=== PATIENT | female | born 1955 | race African-American/Black ===

== ENCOUNTER → 2022-02-12 11:41 | Outpatient (CLI) | payer BC, SELFPAY ==
--- NOTE | ~2022-02-12 | MM_ITS ---
EXAMINATION: MM screening anastasiya BI w abel HISTORY: Screening mammogram TECHNIQUE: Craniocaudal and mediolateral oblique 3-D tomosynthesis images were obtained and synthetic 2-D images were generated. CAD analysis was submitted and interpreted. COMPARISON: No prior mammogram is available for comparison at this institution. BREAST PARENCHYMAL COMPOSITION: There are scattered areas of fibroglandular density. FINDINGS: There is no evidence of suspicious mass, calcification, or architectural distortion to sugg est malignancy in either breast. There has been no suspicious interval change. IMPRESSION: 1. No mammographic evidence of malignancy. 2. Recommend routine screening mammography in one year. BI-RADS Category 1: Negative Reviewed, dictated and finalized at location A.
== END ==
PROVIDERS: PCP Internal Medicine; Visit Provider Internal Medicine
DX: Z12.31 Encounter for screening mammogram for malignant neoplasm of breast (principal)
CPT/HCPCS: 77063; 77067

== ENCOUNTER → 2023-06-18 15:10 | Outpatient (CLI) | payer BC, SELFPAY ==
--- NOTE | ~2023-06-18 | US_ITS ---
EXAMINATION: US pelvic complete w TV DATE: 06/18/2023 15:57 INDICATION: Postmenopausal bleeding TECHNIQUE: Multiple transabdominal and endovaginal sonographic images of the pelvis were obtained. COMPARISON: None. FINDINGS: The uterus measures 6.9 x 4.6 x 6.2 cm. The endometrial complex measures 6 mm. There are po ssible polyps of the endometrial canal measuring up to 11 mm. A small volume of fluid is noted in the endometrial canal. The right ovary is not visualized however no right adnexal abnormality is seen. T he left ovary measures 1.6 x 0.9 x 2.0 cm. There is normal vascular flow in the left ovary. There is no free fluid in the pelvis. IMPRESSION: 1. Small amount of intraventricular fluid with possible endometrial polyps. Endometrial sampling is r ecommended. Reviewed, dictated and finalized at location F. TH ASSOCIATE IMPRESSION: 1. Small amount of intraventricular fluid with possible endometrial polyps. End ometrial sampling is recommended.
== END ==
PROVIDERS: PCP Obstetrics & Gynecology; Visit Provider Obstetrics & Gynecology
DX: N95.0 Postmenopausal bleeding (principal); R93.5 Abnormal findings on diagnostic imaging of other abdominal regions, including retroperitoneum
CPT/HCPCS: 76830; 76856

== ENCOUNTER 2023-08-20 00:21 | Day surgery (SDC) | payer BC, SELFPAY ==
[2023-08-16 09:44] VITALS: BMI 24.1
--- NOTE | 2023-08-16 09:59 | PC.NURSE ---
Report to the Outpatient Waiting Room, entrance under the green pavilion located off [facility], at time __7:30AM on date __08/20/23 . Planned Procedure Time: ___9:30AM . Time changes happen often and if your time is changed the preop area will call you the afternoon before. - You and your visitor will be asked to self-screen and do not enter if you have any COVID symptoms. - A mask is optional within the hospital at this time. Patients may have clear liquids (water, carbonated beverages, clear teas, apple juice) until 3 hours prior to surgery with a maximum of 20 ounces. - No food from midnight until time of surgery. Take the following medications with a SIP of water the morning of surgery: NONE DO NOT STOP ANY OF YOUR OTHER PRESCRIPTION MEDICATIONS PRIOR TO SURGERY ?EXCEPT THE FOLLOWING Medications to discontinue per physician ____HOLD ALL VITAMINS/SUPPLEMENTS 3 DAYS PRE-OP PE ANESTHESIA Date to take last dose 08/16/23 Please no make-up, nail mongolian, hairspray, perfume, deodorant, or body powder the day of surgery. No jewelry (including any body piercings) or valuables the day of surgery, leave them at home. Please take a shower or bath the night before, or the morning of, surgery with an antibacterial soap. Wear comfortable, loose fitting clothing. Children are encouraged to wear pajamas. - Jewelry must be removed prior to entering the operating room. Rings and piercings that are not removed may be cut off. - The hospital will not accept responsibility for valuables. - Please leave all valuables, including medications, at home the day of surgery. If you are going home after surgery, a licensed spotter driver must drive you home. - NO public transportation without another adult if you receive anesthesia. - We recommend that an adult stay with you for 24 hours following discharge. - We also recommend that you do not drive, make important decision, drink alcoholic beverages, or take any drugs that were not prescribed by your health care provider for at least 24 hours after your discharge time. For Pediatric surgeries, we recommend two adults accompany the child home. Follow any additional instructions given to you from your surgeon. If you or anyone in your household have experienced Covid symptoms in the past week, please notify your surgeon or the nurse liaison at the phone number below for possible testing. Telephone instructions given to ____PATIENT and asked if any additional questions and then verbalized understanding. Patient advised to call surgeon office or pre surgery nurse liaison [phone] if any additional questions.
--- NOTE | 2023-08-19 11:27 | P.PNAN_ITS ---
Anes - Initial Pre Proc Eval Procedure: Operation Date: 08/20/23 11:00 Proposed Procedures p Hysteroscopy Dilation and Curettage, Removal of any Endometrial Lesion If Necessary - Richard Tapia MD Date/Time: 08/19/23 11:27 Surgeon: Richard Tapia MD Pre Op Diagnosis: Post Menopausal Bleed,Thickened Endometrial Stripe Patient Data Age: 68 Gender: F Height: 1.7 m Weight: 70 kg Allergies Allergy/AdvReac Type Severity Reaction Status Date / Time Penicillins Allergy Mild Unknown Verified 08/20/23 09:26 Home Medications Medication Instructions Recorded Confirmed Type cod liver oil 5 ml PO DAILY 08/16/23 08/20/23 History Patient hx anesthesia problems: none Family hx anesthesia problems: none Results Review: All pre-operative results and documents have been reviewed as part of the pre- operative evaluation. [facility] Past Medical History Medical History (Updated 08/20/23 @ 09:56 by Santiago Ewing DO) CKD (chronic kidney disease) GERD (gastroesophageal reflux disease) Graves disease Surgical History Surgical History H/O nephrostomy H/O tubal ligation History of removal of calculus of renal pelvis through percutaneous nephrostomy [place] teeth removed Family History Family History Other Alcoholism Diabetes mellitus Heart disease Hypertension Lung cancer Social History Social History Smoking status: Never smoker Alcohol intake: never Substance use: never Do You Feel Safe in your Home?: Yes Lack of Transportation: No Lack of Food: Never True Current Housing: I Have Housing Concerned About Future Housing: No Difficulty Paying Gas/Electric Bills: No Difficulty Paying for Meds: No Currently Unemployed: No Difficulty w/ Childcare or Family Care: No Living arrangements: alone Spiritual care concerns: No Anes - Eval Final PreProcedure Day of Procedure 08/19/23 11:27 Patient weight: normal Heart: regular rate and rhythm Lungs: clear to auscultation and normal air movement Airway: Mallampati scale class II Neurological: alert and oriented Last oral intake: >/= 8 hours ASA classification: III Emergent: no Anesthetic plan: proceed Anesthesia type and monitoring: general GIVS and standard monitoring Results Review: All pre-operative results and documents have been reviewed as part of the pre- operative evaluation. Informed Consent: The patient's anesthetic plan and its attendant risks and benefits were discussed with the patient/family/POA. Questions were solicited and answers provided to the satisfaction of the patient/family/POA.
[2023-08-20 09:25] VITALS: BP 118/72; PULSE 58; RESP 20; TEMP 36.9; O2SAT 98
--- NOTE | 2023-08-20 09:42 | PM.IMHP ---
H&P: HPI History of Present Illness Date/Time: 08/20/23 09:42 Chief Complaint: Postmenopausal spotting Narrative: Patient presented with episodes of post menopausal spotting subsequent ultrasound showed thickened endometrial cavity she opted for hysteroscopy D&C for endometrial sampling. Review of Systems Review of Systems: All systems reviewed & are unremarkable except as noted in HPI and below Cardiovascular: Cardiovascular: Reports no additional cardiovascular complaints, Denies chest pain and Denies dyspnea Respiratory: Respiratory: Reports no additional respiratory complaints and Denies dyspnea Gastrointestinal: Gastrointestinal: Reports abdominal pain, Denies change in bowel habits, Denies diarrhea, Denies nausea and Denies vomiting Genitourinary: Genitourinary: Reports pelvic pain Musculoskeletal: Musculoskeletal: Reports back pain Integumentary/Breasts: Skin/Breast: Reports system reviewed and no additional complaints, except as docu Neurologic: Reports system reviewed and no additional complaints, except as documented PMFSH Past Medical History Medical History GERD (gastroesophageal reflux disease) Graves disease Kidney disease Surgical History Surgical History H/O nephrostomy H/O tubal ligation History of removal of calculus of renal pelvis through percutaneous nephrostomy [place] teeth removed Family History Family History Other Alcoholism Diabetes mellitus Heart disease Hypertension Lung cancer Social History Social History Smoking status: Never smoker Alcohol intake: never Substance use: never Do You Feel Safe in your Home?: Yes Lack of Transportation: No Lack of Food: Never True Current Housing: I Have Housing Concerned About Future Housing: No Difficulty Paying Gas/Electric Bills: No Difficulty Paying for Meds: No Currently Unemployed: No Difficulty w/ Childcare or Family Care: No Living arrangements: alone Spiritual care concerns: No Meds Home Medications and Allergies Home Medications Medication Instructions Recorded Confirmed Type cod liver oil 5 ml PO DAILY 08/16/23 08/20/23 History Allergies Allergy/AdvReac Type Severity Reaction Status Date / Time Penicillins Allergy Mild Unknown Verified 08/20/23 09:26 Exam Const: Orientation/consciousness: oriented to person and oriented to place HENMT: Head: normal to inspection Eyes: General: appearance normal, both eyes and all related structures Resp: Effort & Inspection: normal respiratory effort Auscultation: clear to auscultation bilaterally Cardio: Rate: regular rate Rhythm: regular rhythm GI: Inspection: normal to inspection GI Palp: No Rebound tenderness present Neuro: General: oriented to person and oriented to place Cognition (Neuro): normal cognition Extrem: General: normal to inspection Psych: Appearance: grossly normal and well kempt Assessment and Plan Assessment and plan (1) Endometrial stripe increased: Code(s): R93.89 - Abnormal findings on diagnostic imaging of other specified body structures Status: Acute Assessment and Plan: Will perform D and C hysteroscopy and removal of any lesion if present.
[2023-08-20] MEDS: ACETAMINOPHEN 500 MG TABLET 1000 MG PO (10:11)
--- NOTE | 2023-08-20 10:12 | WPDHPUPDATE1 ---
History and Physical Update Update Date/Time: 08/20/23 10:12 History and Physical has been reviewed, including an updated exam of the patient. There are NO changes in the patient's condition. Risks, benefits, and alternatives have been discussed and questions answered. Patient agrees to proceed with procedure.
[2023-08-20] MEDS: LACTATED RINGERS 1,000 ML 30 ML IV CONT (10:15)
--- NOTE | 2023-08-20 11:04 | SUR.OPER ---
Manual count for intake and output
--- NOTE | 2023-08-20 11:11 | W.PM.PROC2 ---
Procedure Note - Detailed Date of Procedure 08/20/23 Pre-op Diagnosis Post Menopausal Bleed,Thickened Endometrial Stripe Post-op Diagnosis Other (Submucosal fibroids calcified) Procedure Performed dilation and curettage and hysteroscopy and removal of endometrial lesions Surgeon Richard Tapia MD Anesthesia MAC and Local Indications Postmenopausal bleeding, thickened endometrial stripe Findings uterus sound to 10, multiple submucosal fibroid appearing lesion, calcified, not able to remove all due to dense calcium Description of Procedure After informed consent was obtained patient was taken to the operating room and adequate IV sedation was administered. Attention was turned to the vagina. Speculum was inserted. Single-tooth tenaculum placed on the anterior lip of the cervix. 1% lidocaine was injected at the cervical vaginal interface at 2:58 a.m. and 10 position. The uterus was sounded to 10 cm. The cervix was dilated to a 4Pratt dilator. The hysteroscope was inserted into the cavity. The findings were 3 submucosal lesions consistent with fibroids. The larger AVita instrument was used and the fibroids were partially removed with the Cathryn could not remove all of them due to the dense calcium of the fibroids. The fluid deficit was 600. The hysteroscope was removed. A curettage was performed. The single-tooth tenaculum was removed hemostasis was noted at the tenaculum site. Sponge count correct. The patient taken to recovery in stable condition. Estimated Blood Loss 5 Drains No Packing No Pathology Yes (A cathryn shavings and curettage) Complications No immediate complications Condition Stable Disposition Same day [facility] Billing Surgery - Charge Forward: Surgery Billing
[2023-08-20 11:12] VITALS: BP 98/66; PULSE 59; RESP 12; O2SAT 97
[2023-08-20 11:40] VITALS: BP 130/81; PULSE 47; RESP 15
[2023-08-20 12:15] VITALS: BP 129/66; PULSE 52; RESP 16
== END 2023-08-20 12:35 | disposition home or self-care (01) ==
PROVIDERS: PCP Internal Medicine; Visit Provider Obstetrics & Gynecology
PROC: 0U5B8ZZ Destruction of Endometrium, Via Natural or Artificial Opening Endoscopic (ICD-10-PCS; CPT 58563; principal; 2023-08-20 11:00)
DX: N85.8 Other specified noninflammatory disorders of uterus (principal); N18.9 Chronic kidney disease, unspecified
CPT/HCPCS: 58558; 88305; A9270; J2405; J2704; J3010; J7120

== ENCOUNTER 2024-07-01 10:28 | Emergency (ER) | payer BC, SELFPAY ==
[2024-07-01] VITALS (8 sets, daily range): BP systolic 129–157; BP diastolic 74–79; PULSE 54–63; RESP 14–19; O2SAT 97–100
--- OUTSIDE RECORDS SUMMARY | 2024-07-01 10:30 | XMS_ITS | Clinical Summary ---
Author Organization [facility] Address [facility] [place] [address] Care Team Providers Care Snack Steward Name Role Phone Ed Solano MD Primary Care Provider Allergies Active Allergy Reactions Criticality Noted Date Comments Omeprazole Other (see comment) 03/03/2022 Burning sensation in the chris Penicillins Unknown 04/15/2021 Pt states she had a allergic reaction as a child. Medications No known medications Active Problems Problem Noted Date Diagnosed Date History of solitary pulmonary nodule 07/14/2021 Postmenopausal 04/15/2021 Resolved Problems Problem Noted Date Diagnosed Date Resolved Date Prediabetes 04/16/2021 07/14/2021 Immunizations Name Administration Dates Next Due Fluzone High Dose - >Age 65 (Prefilled Syringe) 02/13/2022,02/14/2021 Influenza Peds (Generic) 01/24/2023 MODERNA COVID-19 (12+) MRNA, LNP-S, PF, 100 MCG/ 0.5 ML DOSE 03/29/2021,08/13/2020,07/16/2020 MODERNA COVID-19 (STEM LEAD FORMER CARLENE MARIANNE), MRNA, LNP-S, PF, 50 MCG/ 0.25 ML DOSE 09/29/2021 MODERNA COVID-19, 6-11 Prima ry (DARK BLUE CAP) (previous 18+ monovalent booster), mRNA, LNP-S,PF, 50 mcg/ 0.50mL dose 09/29/2021 PFIZER COVID-19 BIVALENT (12 +) mRNA, LNP-S, PF, 30 MCG/0.3 ML DOSE 02/23/2023,03/09/2022 Shingrix 03/22/2023 Tdap (Adacel) 07/14/2021 Family History Medical History Relation Comments Heart Disease Maternal Grandfather Cancer Maternal Grandmother Lung Cancer Mother Lung Diabetes Mother Goiter Mother Hypertension Mother Diabetes Sister Hypertension Sister Relation Status Comments Brother Alive Father Maternal Grandfather Maternal Grandmother Mother Sister Alive Son Alive Social History Tobacco Use Types Packs/Day Years Used Date Smoking Tobacco: Never Smokeless Tobacco: Never Tobacco Cessation:Counseling Given: Yes Comments:counseled by Dr Solano Alcohol Use Standard Drinks/Week Comments Never 0 (1 standard drink = 0.6 oz pur e alcohol) PHQ-2 Answer Date Recorded Patient Health Questionnaire-2 Score 0 04/20/2023 Comments No Sex and Gender Information Value Date Recorded Sex Assigned at Not on file Legal Sex Female 12:28 PM [facility] Gender Identity Not on file Sexual Orientation Not on file Last Filed Vital Signs Vital Sign Reading Time Taken Comments Blood Pressure 118/80 04/20/2023 8:31 AM [facility] Pulse 55 04/20/2023 8:31 AM [facility] Temperature 36.2 C (97.1 F) 04/20/2023 8:31 AM [facility] Respiratory Rate 18 04/20/2023 8:31 AM [facility] Oxygen Saturation 98% 04/20/2023 8:31 AM [facility] Inhaled Oxygen Concentration - - Weight 71.7 kg (158 lb) 04/20/2023 8:31 AM [facility] Height 170.2 cm (5' 7 ) 04/20/2023 8:31 AM [facility] Body Mass Index 24.75 04/20/2023 8:31 AM [facility] Plan of Treatment Upcoming Encounters Date Type Department Care Team (Late st Contact Info) Description 08/09/2024 7:40 AM CDT Office Visit [facility] - [place] [address] [address] [place] [address] Ed Solano MD [address] [place] [id number] Health Maintenance Due Date Last Done Comments Colorectal Cancer Screening Colonoscopy (10 Years) 10/07/2015 10/06/2005, 10/06/2005 Pneumococcal Vaccine: 65+ Years (1 of 1 - PCV) 01/26/2020 Zoster Vaccines (2 of 2) 05/17/2023 03/22/2023 COVID-19 Vaccine (8 - season) 2024 02/23/2023, 03/09/2022, 09/29/2021, Additional history exists Influenza Adult (#1) 2024 02/08/2023, 01/24/2023, 02/13/2022, Additional history exists PHQ-2 (Physician [place]) 04/20/2024 04/20/2023 PHQ-2 (Physician [place]) 05/17/2024 04/20/2023 Mammogram Screening 03/19/2025 03/19/2023, 03/11/2023, 02/22/2023, Additional history exists RSV Immunization or 60+ Years (1 - 1-dose 75+ series) 2030 DTaP, Tdap and Td Vaccines (2 - Td or Tdap) 07/14/2031 07/14/2021 Hepatitis C Completed 04/15/2021 Dexa Scan (General) Completed 05/26/2023, Meningococcal B Vaccine Aged Out No l onger eligible based on patient's age to complete this topic Meningococcal Vaccine Aged Out No sunday diamond eligible based on patient's age to complete this topic RSV Immunizations Under 20 Months Aged Out No longer eligible based on patient's age to complete this topic Procedures Procedure Name Priority Date/Time Associated Diagnosis Comments BONE DENSITY/DEXA Routine 05/26/2023 12: 18 PM [facility] Postmenopausal MAMMOGRAM GENERIC (SCAN ORDER) 03/19/2023 HEPATITIS C ANTIBODY Routine 04/15/2021 7:55 AM [facility] Annual physical exam Encounter for medical examination to establish care General medical exam Encounter for hepatitis C screening test for low risk patient COLONOSCOPY GENERIC (SCAN ORDER) 10/06/2005 from Last 3 Months or Most Recently Relevant to Health Maintenance Results * BONE DENSITY/DEXA (05/26/2023 12:18 PM [facility]) Anatomical Region Laterality Modality Bone Mammography 05/26/2023 1:45 PM [facility] Impressions 05/26/2023 1:47 PM [facility] =====IMPRESSION:===== The patient bone density osteopenic according to the World Health Organization (WHO) criteria 10 year fracture risk: Major osteoporotic fracture: 3.9 % Hip fracture: 0.4 % Ordered By: ED SOLANO Interpreted By: Vinayak Spear MD, 05/26/2023 1:45 PM Narrative 05/26/2023 1:47 PM [facility] EXAMINATION: Bone Density Axial EXAM DATE/TIME: 05/26/2023 12:01 PM REASON FOR EXAM: post menopausal status COMPARISON: 04/28/2021 FINDINGS: DEXA bone densitometry The bone mineral density (BMD) was determined by dual-energy x-ray absorptiometry, the results are as follows: AP Lumbar Spine L1 through L4 BMD Patient (GM/SQCM): 1.030 T-Score (Standard deviations from young adult peak bone density): -0.2 and a Z- Score of 1.1. . It should be noted that osteoarthritis may falsely increase bone mineral density measured in the lumbar spine. . It should be noted that there has been interval increase from prior exam. Right femoral neck: BMD Patient (GM/SQCM): 0.716 T-Score (Standard deviations from young adult peak bone density): -1.2 and a Z- Score of -0.3. . It should be noted that there has been interval decrease from prior exam. Right Total femur: BMD Patient (GM/SQCM): 0.869 T-Score (Standard deviations from young adult peak bone density): -0.6 and a Z- Score of 0.0. It should be noted that there has been interval decrease from prior exam. Procedure Note Vinayak Spear MD - 05/26/2023 EXAMINATION: Bone Density Axial EXAM DATE/TIME: 05/26/2023 12:01 PM REASON FOR EXAM: post menopausal status COMPARISON: 04/28/2021 FINDINGS: DEXA bone densitometry The bone mineral density (BMD) was determined bydual-energy x-ray absorptiometry, the results are as follows: AP Lumbar Spine L1 through L4 BMD Patient (GM/SQCM): 1.030 T-Score (Standard deviations from young adult peak bonedensity): -0.2 and a Z- Score of 1.1. . It should be noted thatosteoarthritis may falsely increase bone mineral density measured in thelumbar spine. . It should be noted that there has been intervalincrease from prior exam. Right femoral neck: BMD Patient (GM/SQCM): 0.716 T-Score (Standard deviations from young adult peak bonedensity): -1.2 and a Z- Score of -0.3. . It should be noted that therehas been interval decrease from prior exam. Right Total femur: BMD Patient (GM/SQCM): 0.869 T-Score (Standard deviations from young adult peak bonedensity): -0.6 and a Z- Score of 0.0. It should be noted that there hasbeen interval decrease from prior exam. =====IMPRESSION:===== The patient bone density osteopenic according to the World Health Organization (WHO) criteria 10 year fracture risk: Major osteoporotic fracture: 3.9 % Hip fracture: 0.4 % Ordered By: ED SOLANO Interpreted By: Vinayak Spear MD, 05/26/2023 1:45 PM Ed Solano MD DEXA Final Result * MAMMOGRAM GENERIC (03/19/2023) Anatomical Region Laterality Modality Other 03/19/2023 [facility] Scanned SCANNING Final Resu lt * HEPATITIS C ANTIBODY (04/15/2021 7:55 AM [facility]) HEPATITIS C AB NON-REACTI VE NON-REACT DILIP 04/15/2021 9:50 PM [facility] Comment: ANTIBODIES TO HCV NOT DETECTED. DOES NOT EXCLUDE THE POSSIBILITY OF EXPOSURE TO HCV. 04/15/2021 7:55 AM [facility] Ed Solano MD LABORATORY Final Result [facility] [address] [place] [address], [place] [phone] [id number] * COLONOSCOPY GENERIC (10/06/2005) 10/06/2005 Narrative 10/06/2005 Ordered by an unspecified provider. us Documents Scanned SCANNING Final Result from Last 3 Months or Most Recently Relevant to Health Maintenance Insurance [facility] Care Teams Snack Steward Relationship Specialty Start Date End Date Ed Solano MD [address] [facility] [address] [place] [id number] PCP - General INTERNAL MEDICINE 04/15/21
--- OUTSIDE RECORDS SUMMARY | 2024-07-01 10:30 | XMS_ITS | Patient Health Summary ---
Author Organization [facility] [employer] Address [address] [place] [address] Care Team Providers Care Wrap Yarn Sorter Name Role Phone Unavailable Primary Care Provider Unavailabl e Note from [facility],non-owned Affiliates and Associated Physician Practices is amultiple site organization consisting of ambulatory clinics and hospital sitesin [place], [place], [place] and [place]. This disclosure is being madepursuant to the Care Everywhere program and may not contain all information available regarding this patient. Last updated 18.[facility] [employer] Social History Tobacco Use Types Packs/Day Years Used Date Smoking Tobacco: Never Assessed Sex and Gender Information Value Date Recorded Sex Assigned at Not on file Gender Identity Not on file Sexual Orientation Not on file Last Filed Vital Signs Vital Sign Reading Time Taken Comments Blood Pressure 120/80 09/23/2015 8:51 AM CDT Pulse 75 09/23/2015 8:51 AM CDT Temperature 36.5 C (97.7 F) 09/23/2015 8:23 AM CDT Respiratory Rate 18 09/23/2015 8:51 AM CDT Oxygen Saturation 100% 09/23/2015 8:51 AM CDT Inhaled Oxygen Concentration - - Weight 73.9 kg (163 lb) 03/23/2024 3:42 PM VENEER MANUFACTURER Height 170.2 cm (5' 7 ) 03/23/2024 3:42 PM VENEER MANUFACTURER Body Mass Index 25.53 03/23/2024 3:42 PM VENEER MANUFACTURER Procedures * MAMMO BILAT SCREENING W SHERMAN(Performed 03/23/2024) Performed for Encounter for screening mammogram for malignant neoplasm of breast * US BREAST LEFT LTD(Performed 03/19/2023) Performed for Abnormal mammogram * MAMMO LEFT DIAGNOSTIC W SHERMAN(Performed 03/19/2023) Performed for Abnormal mammogram * MAMMO BILAT SCREENING W SHERMAN(Performed 02/22/2023) Performed for Breast cancer screening by mammogram * GROSS + MICRO EXAM(Performed 07/26/2000) Results * Mammo Bilat Screening W Sherman (03/23/2024 3:50 PM VENEER MANUFACTURER) Only the most recent of2 resultswithin the time period is included. Anatomical Region Laterality Modality Breast Bilateral Mammography 03/23/2024 3:49 PM VENEER MANUFACTURER Impressions 03/23/2024 5:03 PM VENEER MANUFACTURER IMPRESSION: No mammographic evidence of malignancy. RECOMMENDATION: Screening mammography in one year, pending no interval breast concerns. Patient will receive the examination results by lay letter. OVERALL ASSESSMENT: BI-RADS CATEGORY 1: NEGATIVE. Report dictated by Gibson Torres MD (outside residential sales professional) Pino Urban MD (fellow) and Дмитрий Oliveira MD (resident) also assisted interpretation of this study. I, Celine Nova MD, FACR have personally reviewed and interpreted this examination/study. > Interpreting Provider: Celine Nova MD, FACR on 03/23/2024 5:03 PM Narrative 03/23/2024 5:03 PM VENEER MANUFACTURER EXAMINATIONS: BILATERAL DIGITAL SCREENING MAMMOGRAM AND BILATERAL BREAST TOMOSYNTHESIS LOCATION: [facility] EXAM DATE: 03/23/2024 HISTORY: Screening. There is no family history of breast cancer cancer. RISK ASSESSMENT CALCULATION: Patient completed a breast cancer risk assessment during her appointment 03/23/2024. Based upon the information she provided and her mammographic breast density, her lifetime risk of developing breast cancer is 5 % (Average Risk <15%; Intermediate / Moderate Risk 15-19; High Risk > 20%). Risk assessment based upon the Tyrer-Cuzick v8 model. COMPARISON: Comparison was made from prior breast imaging from [facility] dated 03/19/2023 and 02/22/2023. Comparison was also made from breast imaging from [facility] dated 02/12/2022 TECHNIQUE: Tomosynthesis (3D) and reconstructed synthetic 2-D images acquired and reviewed in the bilateral craniocaudal and mediolateral oblique projections. A total of 4 images obtained. Transpara AI was utilized in the interpretation. BREAST PARENCHYMAL COMPOSITION: Category B: There are scattered areas of fibroglandular density. FINDINGS: There are no suspicious findings or evidence of malignancy on mammography. There is no significant change from the prior. Richard Alvarez MD MAMMO ORDERABL ES * US BREAST LEFT LTD (Diagnostic , most commonly ordered) (03/19/2023 8:31 AM CDT) Anatomical Region Laterality Modality Breast Left Mammography 03/19/2023 8:24 AM CDT Impressions 03/19/2023 8:42 AM CDT : No left mammographic or targeted left breast sonographic evidence of malignancy. RECOMMENDATION: Screening mammography recommended in one year, pending no interval breast concerns. Dr. Nova discussed the examination findings and recommendations with the patient at the time of the examination. OVERALL ASSESSMENT: BI-RADS CATEGORY 1: NEGATIVE. Report dictated by Ervin Zacarias M.D. (outside residential sales professional). Asaf Brady M.D. assisted in the evaluation and interpretation of the study. I, Celine Nova MD have personally reviewed and interpreted this examination/study. > Interpreting Provider: Celine Nova MD on 03/19/2023 8:42 AM Narrative 03/19/2023 8:42 AM CDT EXAMINATIONS: 1. LEFT DIGITAL DIAGNOSTIC MAMMOGRAM AND TOMOSYNTHESIS WITH CAD AND 2. LIMITED LEFT BREAST ULTRASOUND (COMBINED REPORT) LOCATION: [facility] EXAM DATE: 03/19/2023 HISTORY: Follow-up to an abnormal screening mammogram. Possible partially visualized focal asymmetry within the far posterior right central to outer left breast. RISK ASSESSMENT CALCULATION: Patient completed a breast cancer risk assessment during her appointment on 02/22/2023. Based upon the information she provided and her mammographic breast density, her lifetime risk of developing breast cancer is 7 % (Average Risk <15%; Intermediate / Moderate Risk 15-19%; High Risk > 20%). COMPARISON: Recent screening mammogram dated 02/22/2023, and prior studies back to 2021 MAMMOGRAM: TECHNIQUE: Diagnostic left mammography was performed. Tomosynthesis (3-D) and reconstructed synthetic 2-D images acquired. Left true lateral and craniocaudal spot magnification compression views in addition, a cleavage view, axillary tail and exaggerated craniocaudal medial, and true lateral lateral views. A total of 8 images were obtained. Computer-aided detection (CAD) was utilized. BREAST COMPOSITION: Category B: There are scattered areas of fibroglandular density. FINDINGS: There is no suspicious finding, mass, or evidence of malignancy. The areas in question on the recent exam are felt to represent normal parenchymal tissue. There is no significant change from the prior study. LIMITED LEFT BREAST ULTRASOUND: Scanning performed from the 8 to the 10 o'clock area in addition to the one 1 to the 4:[address] Nova also scan the patient. FINDINGS: Normal targeted ultrasound of the left breast without mass or suspicious findings. No evidence of malignancy. Ed Solano MD US ORDERABLES * MAMMO LEFT DIAGNOSTIC W SHERMAN (03/19/2023 8:11 AM CDT) Anatomical Region Laterality Modality Breast Left Mammography 03/19/2023 8:24 AM CDT Impressions 03/19/2023 8:42 AM CDT : No left mammographic or targeted left breast sonographic evidence of malignancy. RECOMMENDATION: Screening mammography recommended in one year, pending no interval breast concerns. Dr. Nova discussed the examination findings and recommendations with the patient at the time of the examination. OVERALL ASSESSMENT: BI-RADS CATEGORY 1: NEGATIVE. Report dictated by Ervin Zacarias M.D. (outside residential sales professional). Asaf Brady M.D. assisted in the evaluation and interpretation of the study. I, Celine Nova MD have personally reviewed and interpreted this examination/study. > Interpreting Provider: Celine Nova MD on 03/19/2023 8:42 AM Narrative 03/19/2023 8:42 AM CDT EXAMINATIONS: 1. LEFT DIGITAL DIAGNOSTIC MAMMOGRAM AND TOMOSYNTHESIS WITH CAD AND 2. LIMITED LEFT BREAST ULTRASOUND (COMBINED REPORT) LOCATION: [facility] EXAM DATE: 03/19/2023 HISTORY: Follow-up to an abnormal screening mammogram. Possible partially visualized focal asymmetry within the far posterior right central to outer left breast. RISK ASSESSMENT CALCULATION: Patient completed a breast cancer risk assessment during her appointment on 02/22/2023. Based upon the information she provided and her mammographic breast density, her lifetime risk of developing breast cancer is 7 % (Average Risk <15%; Intermediate / Moderate Risk 15-19%; High Risk > 20%). COMPARISON: Recent screening mammogram dated 02/22/2023, and prior studies back to 2021 MAMMOGRAM: TECHNIQUE: Diagnostic left mammography was performed. Tomosynthesis (3-D) and reconstructed synthetic 2-D images acquired. Left true lateral and craniocaudal spot magnification compression views in addition, a cleavage view, axillary tail and exaggerated craniocaudal medial, and true lateral lateral views. A total of 8 images were obtained. Computer-aided detection (CAD) was utilized. BREAST COMPOSITION: Category B: There are scattered areas of fibroglandular density. FINDINGS: There is no suspicious finding, mass, or evidence of malignancy. The areas in question on the recent exam are felt to represent normal parenchymal tissue. There is no significant change from the prior study. LIMITED LEFT BREAST ULTRASOUND: Scanning performed from the 8 to the 10 o'clock area in addition to the one 1 to the 4:[address] Nova also scan the patient. FINDINGS: Normal targeted ultrasound of the left breast without mass or suspicious findings. No evidence of malignancy. Ed Solano MD MAMMO ORDERABLES * GROSS + MICRO EXAM (07/26/2000 7:28 PM VENEER MANUFACTURER) Result CASE NUMBER [id number] Comment: ORDERING PHYSICIAN ALEM PHAM SPECIMEN TYPE Endometrial Biopsy Date 07/27/2000 Physician Lana Gross Description The specimen is received in a formalin-filled container labeled with the patient's name and `endometrium biopsy' and consists of maroon and brown soft tissue fragments measuring 3 x 2 x .2 cm in greatest diameter. The entire specimen is wrapped in tissue paper and submitted in one cassette. IV/c Microscopic Exam Microscopic examination reveals mainly blood, fibrin, mucoid material, acute inflammatory cells intermixed with endometrial fragments. The endometrium shows progestational drug effect. No evidence of hyperplasia, malignancy is seen. Sr/ Diagnosis I. Endometrial biopsy A. Progestational drug effect, B. No evidence of malignancy sr Motor Builder Winder [facility] Pathologist Alma Rosa Lopez M.D. Snomed. 07/28/2000 1030 <1> CPT code 15039/36256 MISCELLANEOUS SAMPLES / Unknown 07/26/2000 7:28 PM VENEER MANUFACTURER 07/26/2000 7:28 PM VENEER MANUFACTURER Historical Provider LAB - PATHOLOGY/C YTOLOGY ORDERABLES
--- OUTSIDE RECORDS SUMMARY | 2024-07-01 10:30 | XMS_ITS | Encounter Summary ---
Author Organization [facility] Address [address] [place] [address] Care Team Providers Care Overseer Kosher Kitchen Name Role Phone Ed Solano MD Primary Care Provider [phone] Encounter Details Date Type Department Care Team (Latest Contact Info) Description 08/31/2022 Gyft Message Enc [facility] Medical Group Multispecialty Care - [place] [address] [place] [address] [address] [place], [place] [id number] Ed Solano MD [address] [facility] [address] [place], [place] [id number] [facility] Gyft Access Social History Tobacco Use Types Packs/Day Years Used Date Smoking Tobacco: Never Smokeless Tobacco: Never Comments:counseled by Dr Kaia melgar Alcohol Use Standard Drinks/Week Comments Never 0 (1 standard drink = 0.6 oz pur e alcohol) PHQ-2 Answer Date Recorded PHQ-2 Score - If the patient scores above 3, please move on to questions 3-9 0 04/15/2021 Comments No Sex and Gender Information Value Date Recorded Sex Assigned at Not on file Legal Sex Female 12:28 PM EXECUTIVE CYBER LEADER Gender Identity Not on file Sexual Orientation Not on file COVID-19 Exposure Response Date Recorded In the last 10 days, have yo u been in contact with someone who was confirmed or suspected to have Coronavirus/COVID-19? No / Unsure 08/31/2022 8:55 AM CDT documented as of this encounter Plan of Treatment Upcoming Encounters Date Type Department Care Team (Late st Contact Info) Description 08/09/2024 7:40 AM CDT Office Visit [facility] Medical Group Multispecialty Care [place] [address] [address] [place] [address] Ed Solano MD [address] [place] [address] documented as of this encounter Visit Diagnoses Not on filedocumented in this encounter Additional Health Concerns Assessment Noted Time PHQ-9 Depression Total Score: 0 04/15/20 21 8:39 AM EXECUTIVE CYBER LEADER documented as of this encounter Care Teams Overseer Kosher Kitchen Relationship Specialty Start Date End Date Ed Solano MD [address] [place] [address] PCP - General INTERNAL MEDICINE 04/15/21 documented as of this encounter
--- OUTSIDE RECORDS SUMMARY | 2024-07-01 10:30 | XMS_ITS | Clinical Summary ---
Author Organization [facility] Address [address] [place] [address] Care Team Providers Care Pencil Sorter Name Role Phone Unavailable Primary Care Provider Unavailabl e Source Comments [facility],non-owned Affiliates and Associated Physician Practices is amultiple site organization consisting of ambulatory clinics and hospital sitesin [place], [place], [place] and [place]. This disclosure is being madepursuant to the Care Everywhere program and may not contain all information available regarding this patient. Last updated 18.[facility] Social History Tobacco Use Types Packs/Day Years [...] 73.9 kg (163 lb) 03/23/2024 3:42 PM RELOCATION COMMISSIONER Height 170.2 cm (5' 7 ) 03/23/2024 3:42 PM RELOCATION COMMISSIONER Body Mass Index 25.53 03/23/2024 3:42 PM RELOCATION COMMISSIONER Plan of Treatment Health Maintenance Due Date Last Done Comments COLOGUARD (AGES 45-75) - COLON CA SCREENING 1955 COLON MONITORING 1955 COLONOSCOPY - COLON CA SCREENING 1955 CT COLONOGRAPHY - COLON CA SCREENING 1955 Colorectal Cancer Screening 1955 FIT - COLON CA SCREENING 1955 FLEX SIG - COLON CA SCREENING 1955 LIPID TESTING 1955 HEPATITIS C SCREENING 01/20/1973 DTAP/TDAP/TD VACCINES (1 - Tdap) 1974 PNEUMOCOCCAL VACCINE 50+ (1 of 1 - PCV) 2005 ZOSTER VACCINE (1 of 2) 2005 COVID-19 VACCINE (7 - season) 2024 02/23/2023, 03/09/2022, 09/29/2021, Additional history exists INFLUENZA VACCINE (#1) 2024 , 03/11/2019, 02/28/2017 DEPRESSION SCREENING 05/17/2024 MAMMOGRAM 03/23/2026 03/23/2024, 07/2022, 03/11/2023, Additional history exists Respiratory Syncytial Virus (RSV) Vaccine Pt: or over 60 yrs (1 - 1-dose 75+ series) 2030 BONE DENSITY TESTING Completed 05/26/2023, 04/28/20 21 HEPATITIS B VACCINE Aged Out No longe r eligible based on patient's age to complete this topic HIB VACCINE Aged Out No longer eligi ble based on patient's age to complete this topic HPV VACCINE Aged Out No longer eligi ble based on patient's age to complete this topic MENINGOCOCCAL (Group B) VACCINE Aged Out No longer eligible based on patient's age to complete this topic MENINGOCOCCAL VACCINE Aged Out No sunday diamond eligible based on patient's age to complete this topic Procedures Procedure Name Priority Date/Time Associated Diagnosis Comments MAMMO BILAT SCREENING W SHERMAN Routine 03/23/2024 3:50 PM RELOCATION COMMISSIONER Encounter for screening mammogram for malignant neoplasm of breast from Last 3 Months or Most Recently Relevant to Health Maintenance Results * Mammo Bilat Screening W Sherman (03/23/2024 3:50 PM RELOCATION COMMISSIONER) Anatomical Region Laterality Modality Breast Bilateral Mammography 03/23/2024 3:49 PM RELOCATION COMMISSIONER Impressions 03/23/2024 5:03 PM RELOCATION COMMISSIONER IMPRESSION: No mammographic evidence of malignancy. RECOMMENDATION: Screening mammography in one year, pending no interval breast concerns. Patient will receive the examination results by lay letter. OVERALL ASSESSMENT: BI-RADS CATEGORY 1: NEGATIVE. Report dictated by Gibson Torres MD (radiology practitioner assistant) Pino Urban MD (fellow) and Дмитрий Oliveira MD (resident) also assisted interpretation of this study. I, Celine Nova MD, FACR have personally reviewed and interpreted this examination/study. > Interpreting Provider: Celine Nova MD, FACR on 03/23/2024 5:03 PM Narrative 03/23/2024 5:03 PM RELOCATION COMMISSIONER EXAMINATIONS: BILATERAL DIGITAL SCREENING MAMMOGRAM AND BILATERAL BREAST TOMOSYNTHESIS LOCATION: [facility] EXAM DATE: 03/23/2024 HISTORY: Screening. There is [...] was made from prior breast imaging from [facility] dated 03/19/2023 and 02/22/2023. Comparison was also made from breast imaging from [facility] dated 02/12/2022 TECHNIQUE: Tomosynthesis (3D) and reconstructed [...] prior. Richard Alvarez MD MAMMO ORDERABL ES from Last 3 Months or Most Recently Relevant to Health Maintenance Fabby Maynard V Personal/Famil y Self 1955 FABBY MAYNARD Personal/Famil y Spouse
--- OUTSIDE RECORDS SUMMARY | 2024-07-01 10:30 | XMS_ITS | Encounter Summary ---
Author Organization [facility] Address [address] [place] [address] Care Team Providers Care Motor And Generator Brush Maker Name Role Phone Ed Solano MD Primary Care Provider [phone] Encounter Details Date Type Department Care Team (Latest Contact Info) Description 03/09/2023 MyChart [facility] [address] [place], [place] [phone] Ed Solano MD [address] [place] [phone] Follow up diagnostic mammogram Social History Tobacco Use Types Packs/Day Years [...] on file Legal Sex 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 Gender Identity Not on file Sexual Orientation Not on file documented as of this encounter Plan of Treatment Upcoming Encounters Date Type Department Care Team (Late st Contact Info) Description 08/09/2024 7:40 AM CDT [facility] [address] [place], [place] [phone] Ed Solano MD [facility] [address] [place] [address] documented as of this encounter Visit Diagnoses Not on filedocumented in this encounter Additional Health Concerns Assessment Noted Time PHQ-9 Depression Total Score: 0 04/15/20 21 8:39 AM MANAGER ADVERTISING documented as of this encounter Care Teams Motor And Generator Brush Maker Relationship Specialty Start Date End Date Ed Solano MD [address] [address] PCP - General INTERNAL MEDICINE 04/15/21 documented as of this encounter
--- OUTSIDE RECORDS SUMMARY | 2024-07-01 10:30 | XMS_ITS | Encounter Summary ---
Author Organization [facility] Address [address] [place] [address] Care Team Providers Care Facility Sales And Admin Name Role Phone Ed Solano MD Primary Care Provider [phone] Encounter Details Date Type Department Care Team (Late st Contact Info) Description 06/01/2023 Cause.itt Message Enc [facility] Medical [address] [facility] Multispecialty [facility] - [address] [address] [place] [facility] Provider [place] result Social History Tobacco Use Types Packs/Day Years [...] on file Legal Sex Female 12:28 PM NEONATAL SPECIALIST Gender Identity Not on file Sexual Orientation Not on file documented as of this encounter Plan of Treatment Upcoming Encounters Date Type Department Care Team (Late st Contact Info) Description 08/09/2024 7:40 AM CDT Office [facility] [address] [address] Ed Solano MD [address] [place] [address] documented as of this encounter Visit Diagnoses Not on filedocumented in this encounter Additional Health Concerns Assessment Noted Time PHQ-9 Depression Total Score: 0 04/20/20 23 9:20 AM NEONATAL SPECIALIST documented as of this encounter Care Teams Facility Sales And Admin Relationship Specialty Start Date End Date Ed Solano MD [address] [address] PCP - General INTERNAL MEDICINE 04/15/21 documented as of this encounter
--- OUTSIDE RECORDS SUMMARY | 2024-07-01 10:30 | XMS_ITS | Encounter Summary ---
Author Organization [facility] Address [address] [place] [address] Care Team Providers Care Anesthesiology Technologist Name Role Phone Ed Solano MD Primary Care Provider [phone] Encounter Details Date Type Department Care Team (Late st Contact Info) Description 10/19/2022 Yamlit Message Enc [facility] Medical [facility] Multispecialty Care - [place] [address] [place] [address] [employer], [facility] Provider [place] result Social History [...] on file Legal Sex Female 12:28 PM AIR CARGO GROUND OPERATIONS SUPERVISOR Gender Identity Not on file Sexual Orientation Not on file COVID-19 Exposure Response Date Recorded In the last 10 days, have yo u been in contact with someone who was confirmed or suspected to have Coronavirus/COVID-19? No / Unsure 10/16/2022 9:03 AM CDT documented as of this encounter Plan of Treatment Upcoming Encounters Date Type Department Care Team (Late st Contact Info) Description 08/09/2024 7:40 AM CDT Office Visit [facility] Medical [facility] Multispecialty Care - [place] [address] [place] [address] Ed Solano MD [address] [address] documented as of this encounter Visit Diagnoses Not on filedocumented in this encounter Additional Health Concerns Assessment Noted Time PHQ-9 Depression Total Score: 0 04/15/20 21 8:39 AM AIR CARGO GROUND OPERATIONS SUPERVISOR documented as of this encounter Care Teams Anesthesiology Technologist Relationship Specialty Start Date End Date Ed Solano MD [address] [address] PCP - General INTERNAL MEDICINE 04/15/21 documented as of this encounter
--- OUTSIDE RECORDS SUMMARY | 2024-07-01 10:30 | XMS_ITS | Referral Summary ---
Author Organization [facility] Address [address] [place] [address] Care Team Providers Care Furnace Tender Name Role Phone Unavailable Primary Care Provider Unavailabl e Source Comments [facility],non-owned Affiliates and Associated Physician Practices is amultiple site organization consisting of ambulatory clinics and hospital sitesin [place], [place], [place] and [place]. This disclosure is being madepursuant to the Care Everywhere program and may not contain all information available regarding this patient. Last updated 18.[facility] Social History Tobacco Use Types Packs/Day [...] 73.9 kg (163 lb) 03/23/2024 3:42 PM RECEIVING LEAD Height 170.2 cm (5' 7 ) 03/23/2024 3:42 PM RECEIVING LEAD Body Mass Index 25.53 03/23/2024 3:42 PM RECEIVING LEAD Plan of Treatment Not on file Procedures Procedure Name Priority Date/Time Associated Diagnosis Comments MAMMO BILAT SCREENING W SHERMAN Routine 03/23/2024 3:50 PM RECEIVING LEAD Encounter for screening mammogram for malignant neoplasm of breast from Last 3 Months or Most Recently Relevant to Health Maintenance Results * Mammo Bilat Screening W Sherman (03/23/2024 3:50 PM RECEIVING LEAD) Anatomical Region Laterality Modality Breast Bilateral Mammography 03/23/2024 3:49 PM RECEIVING LEAD Impressions 03/23/2024 5:03 PM RECEIVING LEAD IMPRESSION: No mammographic evidence of malignancy. RECOMMENDATION: Screening mammography in one year, pending no interval breast concerns. Patient will receive the examination results by lay letter. OVERALL ASSESSMENT: BI-RADS CATEGORY 1: NEGATIVE. Report dictated by Gibson Torres MD (vice president research) Pino Urban MD (fellow) and Дмитрий Oliveira MD (resident) also assisted interpretation of this study. I, Celine Nova MD, FACR have personally reviewed and interpreted this examination/study. > Interpreting Provider: Celine Nova MD, FACR on 03/23/2024 5:03 PM Narrative 03/23/2024 5:03 PM RECEIVING LEAD EXAMINATIONS: BILATERAL DIGITAL SCREENING MAMMOGRAM AND BILATERAL BREAST TOMOSYNTHESIS LOCATION: [facility] EXAM DATE: 03/23/2024 HISTORY: Screening. There [...] was made from prior breast imaging from [facility] dated 03/19/2023 and 02/22/2023. Comparison was also made from breast imaging from [facility] dated 02/12/2022 TECHNIQUE: Tomosynthesis (3D) and [...]
--- OUTSIDE RECORDS SUMMARY | 2024-07-01 10:30 | XMS_ITS | Encounter Summary ---
Author Organization [facility] Address [address] [place] [address] Care Team Providers Care Editor Farm Journal Name Role Phone Ed Solano MD Primary Care Provider [phone] Encounter Details Date Type Department Care Team (Late st Contact Info) Description 10/19/2022 Sweetie High Message Enc [facility] Medical [facility] Multispecialty Care - [place] [address] [place] [address] Myctammy, [facility] Provider nurse visit Social History Tobacco Use Types Packs/Day Years [...] on file 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 [place] [address] Ed Solano MD [address] [address] documented as of this encounter Visit Diagnoses Not on filedocumented in this encounter Additional Health Concerns Assessment Noted Time PHQ-9 Depression Total Score: 0 04/15/20 21 8:39 AM SINTER PRESS OPERATOR documented as of this encounter Care Teams Editor Farm Journal Relationship Specialty Start Date End Date Ed Solano MD [address] [address] PCP - General INTERNAL MEDICINE 04/15/21 documented as of this encounter
--- OUTSIDE RECORDS SUMMARY | 2024-07-01 10:30 | XMS_ITS | Encounter Summary ---
Author Organization [facility] Address [address] [place] [address] Care Team Providers Care Mechanical Design Engineer Facilities Name Role Phone Ed Solano MD Primary Care Provider [phone] Encounter Details Date Type Department Care Team (Late st Contact Info) Description 05/27/2023 MyChart Message Enc [facility] [address] [place], [place] [phone] Ed Solano MD [address] [place] [address] [id number] Vitamin D? 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 [address] [place], [place] [phone] Ed Solano MD [address] [place] [phone] documented as of this encounter Visit Diagnoses Not on filedocumented in this encounter Additional Health Concerns Assessment Noted Time PHQ-9 Depression Total Score: 0 04/20/20 23 9:20 AM HYDROELECTRIC PLANT MAINTAINER documented as of this encounter Care Teams Mechanical Design Engineer Facilities Relationship Specialty Start Date End Date Ed Solano MD [address] [address] PCP - General INTERNAL MEDICINE 04/15/21 documented as of this encounter
--- OUTSIDE RECORDS SUMMARY | 2024-07-01 10:30 | XMS_ITS | Encounter Summary ---
Author Organization [facility] Address [address] [place] [address] Care Team Providers Care Contract Designer Name Role Phone Ed Solano MD Primary Care Provider [phone] Encounter Details Date Type Department Care Team (Latest Contact Info) Description 09/01/2022 Bohemian Guitars Message Enc [facility] Medical [facility] Multispecialty Care - [place] [address] [place] [address] [place], [facility] Provider ultrasound ordered Social History Tobacco Use Types Packs/Day Years [...] on file Legal Sex Female 12:28 PM VOLCANOLOGY TEACHER Gender Identity Not on file Sexual Orientation [...] Description 08/09/2024 7:40 AM CDT Office Visit [facility] Medical [facility] Multispecialty Care - [place] [address] [place] [address] Ed Solano MD [address] [address] documented as of this encounter Visit Diagnoses Not on filedocumented in this encounter Additional Health Concerns Assessment Noted Time PHQ-9 Depression Total Score: 0 04/15/20 21 8:39 AM VOLCANOLOGY TEACHER documented as of this encounter Care Teams Contract Designer Relationship Specialty Start Date End Date Ed Solano MD [address] [address] PCP - General INTERNAL MEDICINE 04/15/21 documented as of this encounter
--- OUTSIDE RECORDS SUMMARY | 2024-07-01 10:30 | XMS_ITS | Encounter Summary ---
Author Organization [facility] Address [address] [place] [address] Care Team Providers Care Generator Operator Straight Bevel Gear Name Role Phone Ed Solano MD Primary Care Provider [phone] Encounter Details Date Type Department Care Team (Latest Contact Info) Description 02/16/2022 MyChart Message Enc [facility] Medical Group Multispecialty Care - [place] [address] [address] [place] [address] Ed Solano MD 118[address] [facility] [address] [place], [place] [id number] Mammogram results Social History Tobacco Use Types Packs/Day Years [...] on file 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 No / Unsure 01/20/2022 8:36 AM CDT documented as of this encounter Plan of Treatment Upcoming Encounters Date Type Department Care Team (Late st Contact Info) Description 08/09/2024 7:40 AM CDT Office Visit [facility] Medical Group Multispecialty Care - [place] [address] [place] [address] [address] [place] [address] Ed Solano MD [address] [address] documented as of this encounter Visit Diagnoses Not on filedocumented in this encounter Additional Health Concerns Assessment Noted Time PHQ-9 Depression Total Score: 0 04/15/20 21 8:39 AM HOTEL CONCIERGE documented as of this encounter Care Teams Generator Operator Straight Bevel Gear Relationship Specialty Start Date End Date Ed Solano MD [address] [place] [address] PCP - General INTERNAL MEDICINE 04/15/21 documented as of this encounter
--- NOTE | 2024-07-01 10:40 | ECG_ITS ---
Test Date: 2024-07-01 10:44:34 Measurements Intervals Almond Rate: 56 P: 42 ND: 164 QRS: 3 QRSD: 91 T: 1 QT: 403 QTc: 389 Interpretive Statements SINUS BRADYCARDIA DELAYED PRECORDIAL R/S TRANSITION BORDERLINE T WAVE ABNORMALITY- ANT/INF LEADS BASELINE WANDER- V3 BORDERLINE ECG No previous ECG available for comparison Electronically Signed On 07-01-2024 11:23:37 BULK PLANT OPERATOR by Seymour Salas D.O.
--- OUTSIDE RECORDS SUMMARY | 2024-07-01 11:09 | XMS_ITS | Encounter Summary ---
Author Organization [facility] Address [address] [place] [address] Care Team Providers Care Exhaust Worker Name Role Phone Ed Solano MD Primary Care Provider [phone] Encounter Details Date Type Department Care Team (Latest Contact Info) Description 09/01/2022 Aviary Message Enc [facility] Medical [facility] Multispecialty Care - [place] [address] [place] [address] [place], [facility] Provider ultrasound ordered Social History Tobacco Use [...] on file Legal Sex Female 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 [place] [address] Ed Solano MD [address] [address] documented as of this encounter Visit Diagnoses Not on filedocumented in this encounter Additional Health Concerns Assessment Noted Time PHQ-9 Depression Total Score: 0 04/15/20 21 8:39 AM SUPERVISOR SPECIALTY PLANT documented as of this encounter Care Teams Exhaust Worker Relationship Specialty Start Date End Date Ed Solano MD [address] [address] PCP - General INTERNAL MEDICINE 04/15/21 documented as of this encounter
--- OUTSIDE RECORDS SUMMARY | 2024-07-01 11:09 | XMS_ITS | Clinical Summary ---
Author Organization [facility] Address [facility] [place] [address] Care Team Providers Care Fence Repairman Name Role Phone Ed Solano MD Primary Care Provider [phone] Allergies Active Allergy Reactions Criticality Noted Date [...] MCG/ 0.5 ML DOSE 03/29/2021,08/13/2020,07/16/2020 MODERNA COVID-19 (CONTROLS DESIGN ENGINEER CARLENE MARIANNE), MRNA, LNP-S, PF, 50 MCG/ [...] on file Legal Sex Female 12:28 PM CHANGE MANAGEMENT Gender Identity Not on file Sexual Orientation Not on file Last Filed Vital Signs Vital Sign Reading Time Taken Comments Blood Pressure 118/80 04/20/2023 8:31 AM CHANGE MANAGEMENT Pulse 55 04/20/2023 8:31 AM CHANGE MANAGEMENT Temperature 36.2 C (97.1 F) 04/20/2023 8:31 AM CHANGE MANAGEMENT Respiratory Rate 18 04/20/2023 8:31 AM CHANGE MANAGEMENT Oxygen Saturation 98% 04/20/2023 8:31 AM CHANGE MANAGEMENT Inhaled Oxygen Concentration - - Weight 71.7 kg (158 lb) 04/20/2023 8:31 AM CHANGE MANAGEMENT Height 170.2 cm (5' 7 ) 04/20/2023 8:31 AM CHANGE MANAGEMENT Body Mass Index 24.75 04/20/2023 8:31 AM CHANGE MANAGEMENT Plan of Treatment Upcoming Encounters Date Type Department Care Team (Late st Contact Info) Description 08/09/2024 7:40 AM CDT Office Visit [facility] Medical Group Multispecialty Care - [place] [address] [address] [place] [address] Ed Solano MD [address] [place] [address] Health Maintenance Due Date Last Done Comments Colorectal Cancer Screening Colonoscopy (10 Years) 10/07/2015 10/06/2005, 10/06/2005 Pneumococcal Vaccine: 65+ Years (1 of 1 - PCV) 01/26/2020 Zoster Vaccines (2 of 2) 05/17/2023 03/22/2023 COVID-19 Vaccine (8 - season) 2024 02/23/2023, 03/09/2022, 09/29/2021, Additional history exists Influenza Adult (#1) 2024 02/08/2023, 01/24/2023, 02/13/2022, Additional history exists PHQ-2 (Physician [place]well) 04/20/2024 04/20/2023 PHQ-2 (Physician [place]well) 05/17/2024 04/20/2023 Mammogram Screening 03/19/2025 03/19/2023, 03/11/2023, [...] BONE DENSITY/DEXA Routine 05/26/2023 12: 18 PM CHANGE MANAGEMENT Postmenopausal MAMMOGRAM GENERIC (SCAN ORDER) 03/19/2023 HEPATITIS C ANTIBODY Routine 04/15/2021 7:55 AM CHANGE MANAGEMENT Annual physical exam Encounter for medical examination to establish care General medical exam Encounter for hepatitis C screening test for low risk patient COLONOSCOPY GENERIC (SCAN ORDER) 10/06/2005 from Last 3 Months or Most Recently Relevant to Health Maintenance Results * BONE DENSITY/DEXA (05/26/2023 12:18 PM CHANGE MANAGEMENT) Anatomical Region Laterality Modality Bone Mammography 05/26/2023 1:45 PM CHANGE MANAGEMENT Impressions 05/26/2023 1:47 PM CHANGE MANAGEMENT =====IMPRESSION:===== The patient bone density osteopenic according to the World Health Organization (WHO) criteria 10 year fracture risk: Major osteoporotic fracture: 3.9 % Hip fracture: 0.4 % Ordered By: ED SOLANO Interpreted By: Vinayak Spear MD, 05/26/2023 1:45 PM Narrative 05/26/2023 1:47 PM CHANGE MANAGEMENT EXAMINATION: Bone Density Axial EXAM DATE/TIME: 05/26/2023 [...] * HEPATITIS C ANTIBODY (04/15/2021 7:55 AM CHANGE MANAGEMENT) HEPATITIS C AB NON-REACTI VE NON-REACT DILIP 04/15/2021 9:50 PM CHANGE MANAGEMENT [facility] Comment: ANTIBODIES TO HCV NOT DETECTED. DOES NOT EXCLUDE THE POSSIBILITY OF EXPOSURE TO HCV. 04/15/2021 7:55 AM CHANGE MANAGEMENT Ed Solano MD LABORATORY Final Result [facility] [address] [place] [address], [place] [phone] [id number] * COLONOSCOPY GENERIC (10/06/2005) 10/06/2005 Narrative 10/06/2005 Ordered by an unspecified provider. us Documents Scanned SCANNING Final Result from Last 3 Months or Most Recently Relevant to Health Maintenance Insurance [facility] Care Teams Fence Repairman Relationship Specialty Start Date End Date Ed Solano MD [address] [facility] [address] [place] [address] PCP - General INTERNAL MEDICINE 04/15/21
--- OUTSIDE RECORDS SUMMARY | 2024-07-01 11:09 | XMS_ITS | Encounter Summary ---
Author Organization [facility] Address [address] [place] [address] Care Team Providers Care Bag Loader Name Role Phone Ed Solano MD Primary Care Provider Encounter Details Date Type Department Care Team (Latest Contact Info) Description 08/31/2022 FameCast Message Enc [facility] Medical Group Multispecialty Care - [place] [address] [place] [address] [address] [place], [place] [phone] Ed Solano MD 118[address] [facility] [address] [place], [place] [phone] 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 Gender Identity Not on file Sexual [...] [facility] Care - [place] [address] [address] [place] [address] Ed Solano MD [address] [place] [address] documented as of this encounter Visit Diagnoses Not on filedocumented in this encounter Additional Health Concerns Assessment Noted Time PHQ-9 Depression Total Score: 0 04/15/20 21 8:39 AM TOOL GRINDER OPERATOR documented as of this encounter Care Teams Bag Loader Relationship Specialty Start Date End Date Ed Solano MD [address] [place] [address] PCP - General INTERNAL MEDICINE 04/15/21 documented as of this encounter
--- OUTSIDE RECORDS SUMMARY | 2024-07-01 11:09 | XMS_ITS | Encounter Summary ---
Author Organization [facility] Address [address] [place] [address] Care Team Providers Care Technical Project Lead Name Role Phone Ed Solano MD Primary Care Provider [phone] Encounter Details Date Type Department Care Team (Late st Contact Info) Description 10/19/2022 VOZt Message Enc [facility] Medical [facility] Multispecialty Care - [place] 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 [place] [address] Ed Solano MD [address] [address] documented as of this encounter Visit Diagnoses Not on filedocumented in this encounter Additional Health Concerns Assessment Noted Time PHQ-9 Depression Total Score: 0 04/15/20 21 8:39 AM RELAY TELEGRAPHER documented as of this encounter Care Teams Technical Project Lead Relationship Specialty Start Date End Date Ed Solano MD [address] [address] PCP - General INTERNAL MEDICINE 04/15/21 documented as of this encounter
--- OUTSIDE RECORDS SUMMARY | 2024-07-01 11:09 | XMS_ITS | Encounter Summary ---
Author Organization [facility] Address [address] [place] [address] Care Team Providers Care Filler Leaf Cutter Long Name Role Phone Ed Solano MD Primary Care Provider [phone] Encounter Details Date Type Department Care Team (Late st Contact Info) Description 10/19/2022 NERITES Message Enc [facility] Medical [facility] Multispecialty Care - [place] [address] [place] [address] Myctammy, [facility] Provider nurse visit Social History Tobacco Use [...] on file Legal Sex Female 12:28 PM VICE PRESIDENT RISK MANAGEMENT Gender Identity Not on file Sexual [...] Description 08/09/2024 7:40 AM CDT Office Visit [facility] Medical [facility] Multispecialty Care - [place] [address] [place] [address] Ed Solano MD [address] [address] documented as of this encounter Visit Diagnoses Not on filedocumented in this encounter Additional Health Concerns Assessment Noted Time PHQ-9 Depression Total Score: 0 04/15/20 21 8:39 AM VICE PRESIDENT RISK MANAGEMENT documented as of this encounter Care Teams Filler Leaf Cutter Long Relationship Specialty Start Date End Date Ed Solano MD [address] [address] PCP - General INTERNAL MEDICINE 04/15/21 documented as of this encounter
--- OUTSIDE RECORDS SUMMARY | 2024-07-01 11:09 | XMS_ITS | Encounter Summary ---
Author Organization [facility] Address [address] [place] [address] Care Team Providers Care Yard Associate Name Role Phone Ed Solano MD Primary Care Provider [phone] Encounter Details Date Type Department Care Team (Latest Contact Info) Description 03/09/2023 MyChart [facility] [address] [place], [place] [address] Ed Solano MD [address] [place] [address] [phone] Follow up diagnostic mammogram Social History Tobacco [...] on file Legal Sex Female 12:28 PM ESCORT PATIENTS Gender Identity Not on file Sexual Orientation Not on file documented as of this encounter Plan of Treatment Upcoming Encounters Date Type Department Care Team (Late st Contact Info) Description 08/09/2024 7:40 AM CDT [facility] [address] [place], [place] [address] Ed Solano MD [facility] [address] [place] [address] documented as of this encounter Visit Diagnoses Not on filedocumented in this encounter Additional Health Concerns Assessment Noted Time PHQ-9 Depression Total Score: 0 04/15/20 21 8:39 AM ESCORT PATIENTS documented as of this encounter Care Teams Yard Associate Relationship Specialty Start Date End Date Ed Solano MD [address] [address] PCP - General INTERNAL MEDICINE 04/15/21 documented as of this encounter
--- OUTSIDE RECORDS SUMMARY | 2024-07-01 11:09 | XMS_ITS | Encounter Summary ---
Author Organization [facility] Address [address] [place] [address] Care Team Providers Care Counselor At Law Name Role Phone Ed Solano MD Primary Care Provider [phone] Encounter Details Date Type Department Care Team (Late st Contact Info) Description 06/01/2023 Wal[place]st Message Enc [facility] Medical [facility] Multispecialty [facility] - [address] [address] [place] [facility] Provider [place] result Social History Tobacco [...] on file Legal Sex Female 12:28 PM HEALTH SCIENCES DEPARTMENT CHAIR Gender Identity Not on file Sexual Orientation Not on file documented as of this encounter Plan of Treatment Upcoming Encounters Date Type Department Care Team (Late st Contact Info) Description 08/09/2024 7:40 AM CDT Office [facility] - [address] [address] Ed Solano MD [address] [place] [address] documented as of this encounter Visit Diagnoses Not on filedocumented in this encounter Additional Health Concerns Assessment Noted Time PHQ-9 Depression Total Score: 0 04/20/20 23 9:20 AM HEALTH SCIENCES DEPARTMENT CHAIR documented as of this encounter Care Teams Counselor At Law Relationship Specialty Start Date End Date Ed Solano MD [address] [address] PCP - General INTERNAL MEDICINE 04/15/21 documented as of this encounter
--- OUTSIDE RECORDS SUMMARY | 2024-07-01 11:09 | XMS_ITS | Patient Health Summary ---
Author Organization [facility] [employer] Address [address] [place] [address] Care Team Providers Care Die Cleaner Name Role Phone Unavailable Primary Care Provider Unavailabl e Note from [facility],non-owned Affiliates and Associated Physician Practices is amultiple site organization consisting of ambulatory clinics and hospital sitesin [place], [place], [place] and [place]. This disclosure is being madepursuant to the Care Everywhere program and may not contain all information available regarding this patient. Last updated 18.[facility] [employer] Social History Tobacco Use Types Packs/Day Years [...] 73.9 kg (163 lb) 03/23/2024 3:42 PM STEAM ROLLER OPERATOR Height 170.2 cm (5' 7 ) 03/23/2024 3:42 PM STEAM ROLLER OPERATOR Body Mass Index 25.53 03/23/2024 3:42 PM STEAM ROLLER OPERATOR Procedures * MAMMO BILAT SCREENING W SHERMAN(Performed [...] Bilat Screening W Sherman (03/23/2024 3:50 PM STEAM ROLLER OPERATOR) Only the most recent of2 resultswithin the time period is included. Anatomical Region Laterality Modality Breast Bilateral Mammography 03/23/2024 3:49 PM STEAM ROLLER OPERATOR Impressions 03/23/2024 5:03 PM STEAM ROLLER OPERATOR IMPRESSION: No mammographic evidence of malignancy. RECOMMENDATION: Screening mammography in one year, pending no interval breast concerns. Patient will receive the examination results by lay letter. OVERALL ASSESSMENT: BI-RADS CATEGORY 1: NEGATIVE. Report dictated by Gibson Torres MD (executive vice president and chief financial officer) Pino Urban MD (fellow) and Дмитрий Oliveira MD (resident) also assisted interpretation of this study. I, Celine Nova MD, FACR have personally reviewed and interpreted this examination/study. > Interpreting Provider: Celine Nova MD, FACR on 03/23/2024 5:03 PM Narrative 03/23/2024 5:03 PM STEAM ROLLER OPERATOR EXAMINATIONS: BILATERAL DIGITAL SCREENING MAMMOGRAM AND BILATERAL BREAST TOMOSYNTHESIS LOCATION: [facility] EXAM DATE: 03/23/2024 HISTORY: Screening. There [...] was made from prior breast imaging from [facility] dated 03/19/2023 and 02/22/2023. Comparison was also made from breast imaging from [facility] dated 02/12/2022 TECHNIQUE: Tomosynthesis (3D) and [...] NEGATIVE. Report dictated by Ervin Zacarias M.D. (executive vice president and chief financial officer). Asaf Brady M.D. assisted in the evaluation and interpretation of the study. I, Celine Nova MD have personally reviewed and interpreted this examination/study. > Interpreting Provider: Celine Nova MD on 03/19/2023 8:42 AM Narrative 03/19/2023 8:42 AM CDT EXAMINATIONS: 1. LEFT DIGITAL DIAGNOSTIC MAMMOGRAM AND TOMOSYNTHESIS WITH CAD AND 2. LIMITED LEFT BREAST ULTRASOUND (COMBINED REPORT) LOCATION: [facility] EXAM DATE: 03/19/2023 HISTORY: Follow-up to [...] NEGATIVE. Report dictated by Ervin Zacarias M.D. (executive vice president and chief financial officer). Asaf Brady M.D. assisted in the evaluation and interpretation of the study. I, Celine Nova MD have personally reviewed and interpreted this examination/study. > Interpreting Provider: Celine Nova MD on 03/19/2023 8:42 AM Narrative 03/19/2023 8:42 AM CDT EXAMINATIONS: 1. LEFT DIGITAL DIAGNOSTIC MAMMOGRAM AND TOMOSYNTHESIS WITH CAD AND 2. LIMITED LEFT BREAST ULTRASOUND (COMBINED REPORT) LOCATION: [facility] EXAM DATE: 03/19/2023 HISTORY: Follow-up to [...] GROSS + MICRO EXAM (07/26/2000 7:28 PM STEAM ROLLER OPERATOR) Result CASE NUMBER [id number] Comment: ORDERING [...] effect, B. No evidence of malignancy sr Grocery Clerk Selling [facility] Pathologist Alma Rosa Lopez M.D. Snomed. 07/28/2000 1030 <1> CPT code 60107/77109 MISCELLANEOUS SAMPLES / Unknown 07/26/2000 7:28 PM STEAM ROLLER OPERATOR 07/26/2000 7:28 PM STEAM ROLLER OPERATOR Historical Provider LAB - PATHOLOGY/C YTOLOGY ORDERABLES
--- OUTSIDE RECORDS SUMMARY | 2024-07-01 11:09 | XMS_ITS | Clinical Summary ---
Author Organization [facility] Address [address] [facility] [place] [address] Care Team Providers Care Undercover Operator Name Role Phone Unavailable Primary Care Provider Unavailabl e Source Comments [facility],non-owned Affiliates and Associated Physician Practices is amultiple site organization consisting of ambulatory clinics and hospital sitesin [place], [place], [place] and [place]. This disclosure is being madepursuant to the Care Everywhere program and may not contain all information available regarding this patient. Last updated 18.[facility] Social History Tobacco Use Types [...] 73.9 kg (163 lb) 03/23/2024 3:42 PM ACCOUNTANT BUDGET Height 170.2 cm (5' 7 ) 03/23/2024 3:42 PM ACCOUNTANT BUDGET Body Mass Index 25.53 03/23/2024 3:42 PM ACCOUNTANT BUDGET Plan of Treatment Health Maintenance Due Date [...] SCREENING W SHERMAN Routine 03/23/2024 3:50 PM ACCOUNTANT BUDGET Encounter for screening mammogram for malignant neoplasm of breast from Last 3 Months or Most Recently Relevant to Health Maintenance Results * Mammo Bilat Screening W Sherman (03/23/2024 3:50 PM ACCOUNTANT BUDGET) Anatomical Region Laterality Modality Breast Bilateral Mammography 03/23/2024 3:49 PM ACCOUNTANT BUDGET Impressions 03/23/2024 5:03 PM ACCOUNTANT BUDGET IMPRESSION: No mammographic evidence of malignancy. RECOMMENDATION: Screening mammography in one year, pending no interval breast concerns. Patient will receive the examination results by lay letter. OVERALL ASSESSMENT: BI-RADS CATEGORY 1: NEGATIVE. Report dictated by Gibson Torres MD (optometrist president/practice owner) Pino Urban MD (fellow) and Дмитрий Oliveira MD (resident) also assisted interpretation of this study. I, Celine Nova MD, FACR have personally reviewed and interpreted this examination/study. > Interpreting Provider: Celine Nova MD, FACR on 03/23/2024 5:03 PM Narrative 03/23/2024 5:03 PM ACCOUNTANT BUDGET EXAMINATIONS: BILATERAL DIGITAL SCREENING MAMMOGRAM AND BILATERAL BREAST TOMOSYNTHESIS LOCATION: [facility] EXAM DATE: 03/23/2024 HISTORY: [...] was made from prior breast imaging from [facility] dated 03/19/2023 and 02/22/2023. Comparison was also made from breast imaging from [facility] dated 02/12/2022 TECHNIQUE: Tomosynthesis (3D) and reconstructed [...]
--- OUTSIDE RECORDS SUMMARY | 2024-07-01 11:09 | XMS_ITS | Encounter Summary ---
Author Organization [facility] Address [address] [place] [address] Care Team Providers Care Wastewater Treatment Operator Name Role Phone Ed Solano MD Primary Care Provider [phone] Encounter Details Date Type Department Care Team (Late st Contact Info) Description 05/27/2023 [facility] [address] [place], [place] [phone] Ed Solano MD [address] [place] [address] [id number] Vitamin D? Social History Tobacco Use Types [...] on file Legal Sex Female 12:28 PM CLINIC MANAGER Gender Identity Not on file Sexual Orientation Not on file documented as of this encounter Plan of Treatment Upcoming Encounters Date Type Department Care Team (Late st Contact Info) Description 08/09/2024 7:40 AM CDT [facility] [address] [place], [place] [phone] Ed Solano MD [address] [place] [address] [phone] documented as of this encounter Visit Diagnoses Not on filedocumented in this encounter Additional Health Concerns Assessment Noted Time PHQ-9 Depression Total Score: 0 04/20/20 23 9:20 AM CLINIC MANAGER documented as of this encounter Care Teams Wastewater Treatment Operator Relationship Specialty Start Date End Date Ed Solano MD [address] [address] PCP - General INTERNAL MEDICINE 04/15/21 documented as of this encounter
--- OUTSIDE RECORDS SUMMARY | 2024-07-01 11:09 | XMS_ITS | Encounter Summary ---
Author Organization [facility] Address [address] [place] [address] Care Team Providers Care Cleaners Name Role Phone Ed Solano MD Primary Care Provider [phone] Encounter Details Date Type Department Care Team (Latest Contact Info) Description 02/16/2022 MyChart Message Enc [facility] Multispecialty Care [place] [address] [address] [place] [address] Ed Solano MD [address] [facility] [address] [place], [place] [phone] Mammogram results Social History Tobacco Use Types [...] on file Legal Sex Female 12:28 PM SKEIN WASHER Gender Identity Not on file Sexual Orientation [...] Description 08/09/2024 7:40 AM CDT Office Visit [facility] Multispecialty Care - [place] [address] [place] [address] [address] [place] [address] Ed Solano MD [address] [address] documented as of this encounter Visit Diagnoses Not on filedocumented in this encounter Additional Health Concerns Assessment Noted Time PHQ-9 Depression Total Score: 0 04/15/20 21 8:39 AM SKEIN WASHER documented as of this encounter Care Teams Cleaners Relationship Specialty Start Date End Date Ed Solano MD [address] [place] [address] PCP - General INTERNAL MEDICINE 04/15/21 documented as of this encounter
--- OUTSIDE RECORDS SUMMARY | 2024-07-01 11:09 | XMS_ITS | Referral Summary ---
Author Organization [facility] Address [address] [place] [place] [address] Care Team Providers Care Char Filter Operator Helper Name Role Phone Unavailable Primary Care Provider Unavailabl e Source Comments [facility],non-owned Affiliates and Associated Physician Practices is amultiple site organization consisting of ambulatory clinics and hospital sitesin [place], [place] and [place]. This disclosure is being madepursuant to the Care Everywhere program and may not contain all information available regarding this patient. Last updated 18.[facility] Social History Tobacco Use Types Packs/Day Years [...] 73.9 kg (163 lb) 03/23/2024 3:42 PM PAD MACHINE FEEDER Height 170.2 cm (5' 7 ) 03/23/2024 3:42 PM PAD MACHINE FEEDER Body Mass Index 25.53 03/23/2024 3:42 PM PAD MACHINE FEEDER Plan of Treatment Not on file Procedures Procedure Name Priority Date/Time Associated Diagnosis Comments MAMMO BILAT SCREENING W SHERMAN Routine 03/23/2024 3:50 PM PAD MACHINE FEEDER Encounter for screening mammogram for malignant neoplasm of breast from Last 3 Months or Most Recently Relevant to Health Maintenance Results * Mammo Bilat Screening W Sherman (03/23/2024 3:50 PM PAD MACHINE FEEDER) Anatomical Region Laterality Modality Breast Bilateral Mammography 03/23/2024 3:49 PM PAD MACHINE FEEDER Impressions 03/23/2024 5:03 PM PAD MACHINE FEEDER IMPRESSION: No mammographic evidence of malignancy. RECOMMENDATION: Screening mammography in one year, pending no interval breast concerns. Patient will receive the examination results by lay letter. OVERALL ASSESSMENT: BI-RADS CATEGORY 1: NEGATIVE. Report dictated by Gibson Torres MD (president celebrity acquistion) Pino Urban MD (fellow) and Дмитрий Oliveira MD (resident) also assisted interpretation of this study. I, Celine Nova MD, FACR have personally reviewed and interpreted this examination/study. > Interpreting Provider: Celine Nova MD, FACR on 03/23/2024 5:03 PM Narrative 03/23/2024 5:03 PM PAD MACHINE FEEDER EXAMINATIONS: BILATERAL DIGITAL SCREENING MAMMOGRAM AND BILATERAL BREAST TOMOSYNTHESIS LOCATION: [facility] EXAM DATE: 03/23/2024 HISTORY: [...] was made from prior breast imaging from [facility] dated 03/19/2023 and 02/22/2023. Comparison was also made from breast imaging from [facility] dated 02/12/2022 TECHNIQUE: Tomosynthesis (3D) and [...]
[2024-07-01] MEDS: MECLIZINE HCL 25 MG TABLET PO (11:54)
[2024-07-01] MEDS: SODIUM CHLORIDE 0.9% IV 1,000 ML 999 ML IV CONT (11:54)
[2024-07-01 12:02] LABS: Basophils Absolute Auto 0.1 K/mm3 (0.0-0.1); Basophils Percent Auto 1.6 % (0.2-1.2); Eosinophils Percent Auto 0.7 % (0-4.4); Hematocrit 40.7 % (37.0-47.0); Hemoglobin 13.4 g/dL (12.0-15.0); Immature Granulocyte Absolute 0.01 K/mm3 (0.00-0.031); Immature Granulocyte Percent A 0.2 % (0-0.5); Lymphocytes Absolute Auto 1.76 K/mm3 (0.9-3.2); Lymphocytes Percent Auto 39.5 % (18.3-44.2); Mean Corpuscular HGB Conc 32.9 g/dl (32-36); Mean Corpuscular Hemoglobin 30.7 pg (26-34); Mean Corpuscular Volume 93.3 fl (80-100); Mean Platelet Volume 11.5 fl (7.4-10.4); Monocytes Absolute Auto 0.4 K/mm3 (0.1-0.6); Monocytes Percent Auto 8.5 % (2.6-8.5); Neutrophils Absolute Auto 2.2 K/mm3 (1.3-6.7); Neutrophils Percent Auto 49.5 % (45.5-73.1); Platelet Count Result 223 k/mm3 (150-375); Red Blood Count 4.36 M/mm3 (4.2-5.4); Red Cell Distribution Width 12.9 % (11.5-14.5); White Blood Count 4.5 K/mm3 (4.5-10.0)
[2024-07-01 12:08] LABS: Alanine Aminotransferase 22 U/L (6-35); Alkaline Phosphatase 68 U/L (38-126); Anion Gap 8 mmol/L (4-12); Aspartate Amino Transferase 29 U/L (14-36); Bilirubin,Total 0.6 mg/dL (0.2-1.3); Blood Urea Nitrogen 15 mg/dL (7-17); Calcium 9.2 mg/dL (8.4-10.2); Carbon Dioxide 27 mmol/L (22-30); Chloride 106 mmol/L (98-107); Estimated CRCL calculation 50 ml/min; Estimated Glomerular Filt Rate > 60; Glucose 102 mg/dL (65-110); Potassium 4.2 mmol/L (3.4-5.0); Sodium 141 mmol/L (137-145)
[2024-07-01 12:15] LABS: Add Urine Microscopic? NO; Appearance Urine Clear (Clear); Bilirubin Urine Negative (Negative); Blood Urine Negative (Negative); Color Urine Yellow (Yellow); Glucose Urine UA Negative (Negative); Ketones Urine Negative (Negative); Leukocyte Esterase Ur Negative LEU/UL (Negative); Nitrate Urine Negative (Negative); Protein Urine Negative (Negative); Specific Grav Ur 1.015 (1.001-1.035); Urobilinogen Urine 0.2 mg/dL (<2.0); pH Urine 7.5 (5.0-9.0)
--- NOTE | 2024-07-01 13:22 | PC.NURSE ---
Ambulatory to bathroom with slow gait. Reports dizziness decreased but had a wave through her head when she returned to bed. Has no c/o at present.
--- NOTE | 2024-07-01 14:36 | ED_ITS ---
HPI - General Adult General Chief complaint: Dizziness Stated complaint: dizziness Time Seen by Provider: 07/01/24 11:02 History of Present Illness HPI narrative: Patient is a 69-year-old female who presents ER with dizziness. Beginning today. Worse when she turns her head to left and rolls over. Woke her up from sleep. Causes her to have some nausea. Feels like the room is moving. Has not had similar symptoms. No recent sinus congestion or sore throat or cough. No numbness or weakness in the arms or legs. Related Data Allergies Allergy/AdvReac Type Severity Reaction Status Date / Time Penicillins Allergy Mild Unknown Verified 07/01/24 10:30 Review of Systems 2 Constitutional: Constitutional: Reports no additional constitutional complaints ENT: Reports dizziness, Denies nasal congestion and Denies sore throat Cardiovascular: Cardiovascular: Reports no additional cardiovascular complaints Respiratory: Respiratory: Reports no additional respiratory complaints Gastrointestinal: Gastrointestinal: Reports no additional gastrointestinal complaints PMFSH Past Medical History Medical History CKD (chronic kidney disease) GERD (gastroesophageal reflux disease) Graves disease Surgical History Surgical History H/O nephrostomy H/O tubal ligation History of removal of calculus of renal pelvis through percutaneous nephrostomy [place] teeth removed Family History Family History Other Alcoholism Diabetes mellitus Heart disease Hypertension Lung cancer Social History Social History Smoking status: Never smoker Alcohol intake: never Substance use: never Do You Feel Safe in your Home?: Yes Lack of Transportation: No Lack of Food: Never True Current Housing: I Have Housing Concerned About Future Housing: No Difficulty Paying Gas/Electric Bills: No Difficulty Paying for Meds: No Currently Unemployed: No Difficulty w/ Childcare or Family Care: No Living arrangements: alone Spiritual care concerns: No Exam 2 Narrative: GENERAL: Well-appearing, well-nourished, and in no acute distress. HEAD: Normocephalic, atraumatic. EYES: PERRL and EOMI. No nystagmus. ENT: Mucous membranes moist. TMs normal bilaterally. CHEST: Clear to auscultation. No respiratory distress. HEART: Regular rate and rhythm. Normal peripheral pulses. EXTREMITIES: Normal range of motion. No edema. SKIN: Warm, dry, no rash. NEURO: Alert and oriented x3. PSYCH: Normal mood and affect. Course Course Emergency Course: Patient informed of results. Modest improvement with meclizine. Labs unremarkable. Discharged home with a meclizine prescription. Vital Signs Vital signs: Vital Signs Pulse Oximetry 98 07/01/24 10:43 Pulse Rate 59 L 07/01/24 11:31 Respiratory Rate 19 07/01/24 11:31 Blood Pressure 129/74 07/01/24 11:31 Pulse Oximetry 98 07/01/24 11:31 Medical Decision Making Vital Signs Vital Signs: Vital Signs Pulse Oximetry 98 07/01/24 10:43 Pulse Rate 59 L 07/01/24 11:31 Respiratory Rate 19 07/01/24 11:31 Blood Pressure 129/74 07/01/24 11:31 Pulse Oximetry 98 07/01/24 11:31 Lab Data 07/01/24 11:49 07/01/24 11:49 Labs: Lab Results 07/01/24 07/01/24 Range/Units 11:48 11:49 WBC 4.5 (4.5-10.0) K/mm3 RBC 4.36 (4.2-5.4) M/mm3 Hgb 13.4 (12.0-15.0) g/dL Hct 40.7 (37.0-47.0) % MCV 93.3 (80-100) fl MCH 30.7 (26-34) pg MCHC 32.9 (32-36) g/dl RDW 12.9 (11.5-14.5) % Plt Count 223 (150-375) k/mm3 MPV 11.5 H (7.4-10.4) fl Immature Gran % (Auto) 0.2 (0-0.5) % Neut % (Auto) 49.5 (45.5-73.1) % Lymph % (Auto) 39.5 (18.3-44.2) % [place] % (Auto) 8.5 (2.6-8.5) % Eos % (Auto) 0.7 (0-4.4) % Baso % (Auto) 1.6 H (0.2-1.2) % Lymph # (Auto) 1.76 (0.9-3.2) K/mm3 [place] # (Auto) 0.4 (0.1-0.6) K/mm3 Eos # (Auto) 0.0 (0-0.3) K/mm3 Baso # (Auto) 0.1 (0.0-0.1) K/mm3 Abs Immat Gran (auto) 0.01 (0.00-0.031) K/mm3 Absolute Neuts (auto) 2.2 (1.3-6.7) K/mm3 Absolute Nucleated RBC 0.000 (0.0-0.012) K/mm3 Nucleated RBC % 0.0 (0.0-0.2) % Sodium 141 (137-145) mmol/L Potassium 4.2 (3.4-5.0) mmol/L Chloride 106 (98-107) mmol/L Carbon Dioxide 27 (22-30) mmol/L Anion Gap 8 (4-12) mmol/L BUN 15 (7-17) mg/dL Creatinine 0.90 (0.7-1.0) mg/dL Estim Creat Clear Calc 50 ml/min Estimated GFR > 60 (59 - ) Glucose 102 (65-110) mg/dL Calcium 9.2 (8.4-10.2) mg/dL Total Bilirubin 0.6 (0.2-1.3) mg/dL AST 29 (14-36) U/L ALT 22 (6-35) U/L Alkaline Phosphatase 68 (38-126) U/L Total Protein 8.0 (6.3-8.2) g/dL Albumin 4.0 (3.5-5.1) g/dL Urine Color Yellow (Yellow) Urine Appearance Clear (Clear) Urine pH 7.5 (5.0-9.0) Ur Specific [employer] 1.015 (1.001-1.035) Urine Protein Negative (Negative) mg/dL Urine Glucose (UA) Negative (Negative) mg/dL Urine Ketones Negative (Negative) mg/dL Ur Blood (Man) Negative (Negative) Urine Nitrate Negative (Negative) Urine Bilirubin Negative (Negative) Urine Urobilinogen 0.2 (<2.0) mg/dL Leukocyte Esterase Rfl Negative (Negative) FRANK/UL Discharge Plan Discharge Clinical Impression: Vertigo Patient Disposition: Home, Self-Care Condition: Stable Instructions: Vertigo (ED) Additional Instructions: Return ER if you have new focal weakness of an arm or leg, urinate post tandem walk, or you have additional concerns. Follow-up with your primary care doctor. Patient Language: Wolof Prescriptions: New meclizine 12.5 mg tablet 12.5 mg PO TID PRN (Reason: dizziness) Qty: 14 0RF Follow-up/Referrals: Xiomara,MD Ed [Primary Care Provider] - 1 Week
== END 2024-07-01 14:55 | disposition home or self-care (01) ==
PROVIDERS: Emergency Provider Emergency Medicine; PCP Internal Medicine
DX: R42 Dizziness and giddiness (principal); N18.9 Chronic kidney disease, unspecified; K21.9 Gastro-esophageal reflux disease without esophagitis; E05.00 Thyrotoxicosis with diffuse goiter without thyrotoxic crisis or storm; Z90.5 Acquired absence of kidney
CPT/HCPCS: 36415; 80053; 81003; 85025; 93005; 96360; 99284; A9270; J7030

== ENCOUNTER 2024-07-11 00:15 | Emergency (ER) | payer BC, SELFPAY ==
--- NOTE | ~2024-07-11 | CT_ITS ---
Non-contrast Head CT History: Headache Technique: Axial non-contrast imaging of the brain was performed. Dose reduction technique was used on this scan by utilizing automated exposure control and iterative reconstruction technique. The dose -length product (DLP) was 681.00 mGy-cm. Findings: There is no evidence of intracranial hemorrhage, mass lesion, or acute infarct. Brain par enchyma appears normal. The ventricles and subarachnoid spaces are normal in size. The calvarium ap pears normal. The visualized paranasal sinuses and mastoid air cells are clear. Impression: No significant abnormality seen. Reviewed, dictated and finalized at location . [employer] Impression: No significant abnormality seen.
--- NOTE | ~2024-07-11 | XR_ITS ---
Portable chest x-ray Comparison: None Clinical History: Hypertension Findings: Lungs are clear, without focal consolidation or pleural effusion. Cardiomediastinal silho uette is unremarkable. Bones and soft tissues are unremarkable. Impression: Normal chest. Reviewed, dictated and finalized at location . [employer] Impression: Normal chest.
[2024-07-11 00:16] VITALS: BP 190/84; PULSE 65; RESP 16; TEMP 36.5; O2SAT 100
--- OUTSIDE RECORDS SUMMARY | 2024-07-11 00:18 | XMS_ITS | Encounter Summary ---
Author Organization [facility] Address [address] [place] [address] Care Team Providers Care Piece Jobber Name Role Phone Ed Solano MD Primary Care Provider [phone] Encounter Details Date Type Department Care Team (Late st Contact Info) Description 05/27/2023 MyChart Message Enc [facility] Medical Group Multispecialty Care - [place] [address] [place] [address] [address] [place], [place] [phone] [place] [address] [place] [address] [address] [place], [place] [phone] Vitamin D? Social History Tobacco Use Types Packs/Day Years Used Date Smoking Tobacco: Never Smokeless Tobacco: Never Comments:counseled by Dr Kaia melgar Alcohol Use Standard Drinks/Week Comments Never 0 (1 standard drink = 0.6 oz pur e alcohol) PHQ-2 Answer Date Recorded Patient Health Questionnaire-2 Score 0 04/20/2023 Comments No Sex and Gender Information Value Date Recorded Sex Assigned at Female 07/04/2024 9:00 AM JUVENILE CORRECTIONS OFFICER Legal Sex Female 12:28 PM JUVENILE CORRECTIONS OFFICER Gender Identity Female 07/04/2024 9:00 AM JUVENILE CORRECTIONS OFFICER Sexual Orientation Straight 07/04/2024 9: 00 AM JUVENILE CORRECTIONS OFFICER documented as of this encounter Plan of Treatment Upcoming Encounters Date Type Department Care Team (Late st Contact Info) Description 07/12/2024 2:15 PM JUVENILE CORRECTIONS OFFICER Office [facility] [address] [facility] [address] [place], [place] [phone] Ed Solano MD [address] [address] Melody Meza, PT 1 [place] [address] 08/09/2024 7:40 AM CDT Office Visit [facility] Medical Group Multispecialty Care - [place] [address] [address] [place] [address] Ed Solano MD [address] [address] documented as of this encounter Visit Diagnoses Not on filedocumented in this encounter Additional Health Concerns Assessment Noted Time PHQ-9 Depression Total Score: 0 04/20/20 23 9:20 AM JUVENILE CORRECTIONS OFFICER documented as of this encounter Care Teams Piece Jobber Relationship Specialty Start Date End Date Ed Solano MD [address] [place] [address] PCP - General INTERNAL MEDICINE 04/15/21 documented as of this encounter
--- OUTSIDE RECORDS SUMMARY | 2024-07-11 00:18 | XMS_ITS | Encounter Summary ---
Author Organization [facility] Address [address] [place] [address] Care Team Providers Care Health And Safety Technician Name Role Phone Ed Solano MD Primary Care Provider [phone] Encounter Details Date Type Department Care Team (Latest Contact Info) Description 02/16/2022 [employer]hart Message Enc [facility] Medical Group Multispecialty Care - [place] [address] [address] [place] [address] [place] [address] [place] [address] [address] [place], [place] [phone] Mammogram results Social History Tobacco Use Types [...] Sex Assigned at Female 07/04/2024 9:[address]EEPER Legal Sex Female 12:[address]PER Gender Identity Female 07/04/2024 9:[address] SWEEPER Sexual Orientation Straight 07/04/2024 9: [address] SWEEPER COVID-19 Exposure Response Date Recorded In the last 10 days, have yo u been in contact with someone who was confirmed or suspected to have Coronavirus/COVID-19? No / Unsure 01/20/2022 8:36 AM CDT documented as of this encounter Plan of Treatment Upcoming Encounters Date Type Department Care Team (Late st Contact Info) Description 07/12/2024 2:[address] SWEEPER Office Visit [facility] Physical Therapy [address] [place] [address] Ed Solano MD [address] [address] Melody Meza, PT 1 [place] [address] 08/09/2024 7:40 AM CDT Office Visit [facility] Medical Group Multispecialty Care - [place] [address] [address] [place] [address] Ed Solano MD [address] [place] [address] documented as of this encounter Visit Diagnoses Not on filedocumented in this encounter Additional Health Concerns Assessment Noted Time PHQ-9 Depression Total Score: 0 04/15/20 21 8:[address]EEPER documented as of this encounter Care Teams Health And Safety Technician Relationship Specialty Start Date End Date Ed Solano MD [address] [place] [address] PCP - General INTERNAL MEDICINE 04/15/21 documented as of this encounter
--- OUTSIDE RECORDS SUMMARY | 2024-07-11 00:18 | XMS_ITS | Patient Health Summary ---
Author Organization [facility] Address [address] [facility] [place] [address] Care Team Providers Care Counterintelligence Specialist Name Role Phone Unavailable Primary Care Provider Unavailabl e Note from [facility],non-owned Affiliates and Associated Physician Practices is amultiple site organization consisting of ambulatory clinics and hospital sitesin [place], [place], [place] and [place]. This disclosure is being madepursuant to the Care Everywhere program and may not contain all information available regarding this patient. Last updated 18.[facility] Social History Tobacco Use Types Packs/Day Years [...] 73.9 kg (163 lb) 03/23/2024 3:42 PM FINANCIAL SERVICES SALES REPRESENTATIVE Height 170.2 cm (5' 7 ) 03/23/2024 3:42 PM FINANCIAL SERVICES SALES REPRESENTATIVE Body Mass Index 25.53 03/23/2024 3:42 PM FINANCIAL SERVICES SALES REPRESENTATIVE Procedures * MAMMO BILAT SCREENING W SHERMAN(Performed [...] Bilat Screening W Sherman (03/23/2024 3:50 PM FINANCIAL SERVICES SALES REPRESENTATIVE) Only the most recent of2 resultswithin the time period is included. Anatomical Region Laterality Modality Breast Bilateral Mammography 03/23/2024 3:49 PM FINANCIAL SERVICES SALES REPRESENTATIVE Impressions 03/23/2024 5:03 PM FINANCIAL SERVICES SALES REPRESENTATIVE IMPRESSION: No mammographic evidence of malignancy. RECOMMENDATION: Screening mammography in one year, pending no interval breast concerns. Patient will receive the examination results by lay letter. OVERALL ASSESSMENT: BI-RADS CATEGORY 1: NEGATIVE. Report dictated by Gibson Torres MD (radiology asst) Pino Urban MD (fellow) and Дмитрий Oliveira MD (resident) also assisted interpretation of this study. I, Celine Nova MD, FACR have personally reviewed and interpreted this examination/study. > Interpreting Provider: Celine Nova MD, FACR on 03/23/2024 5:03 PM Narrative 03/23/2024 5:03 PM FINANCIAL SERVICES SALES REPRESENTATIVE EXAMINATIONS: BILATERAL DIGITAL SCREENING MAMMOGRAM AND BILATERAL BREAST TOMOSYNTHESIS LOCATION: [facility] EXAM DATE: 03/23/2024 HISTORY: Screening. [...] was made from prior breast imaging from [facility] dated 03/19/2023 and 02/22/2023. Comparison was also made from breast imaging from [facility] dated 02/12/2022 TECHNIQUE: Tomosynthesis (3D) and [...] NEGATIVE. Report dictated by Ervin Zacarias M.D. (radiology asst). Asaf Brady M.D. assisted in the evaluation and interpretation of the study. I, Celine Nova MD have personally reviewed and interpreted this examination/study. > Interpreting Provider: Celine Nova MD on 03/19/2023 8:42 AM Narrative 03/19/2023 8:42 AM CDT EXAMINATIONS: 1. LEFT DIGITAL DIAGNOSTIC MAMMOGRAM AND TOMOSYNTHESIS WITH CAD AND 2. LIMITED LEFT BREAST ULTRASOUND (COMBINED REPORT) LOCATION: [facility] EXAM DATE: 03/19/2023 HISTORY: Follow-up to an [...] NEGATIVE. Report dictated by Ervin Zacarias M.D. (radiology asst). Asaf Brady M.D. assisted in the evaluation and interpretation of the study. I, Celine Nova MD have personally reviewed and interpreted this examination/study. > Interpreting Provider: Celine Nova MD on 03/19/2023 8:42 AM Narrative 03/19/2023 8:42 AM CDT EXAMINATIONS: 1. LEFT DIGITAL DIAGNOSTIC MAMMOGRAM AND TOMOSYNTHESIS WITH CAD AND 2. LIMITED LEFT BREAST ULTRASOUND (COMBINED REPORT) LOCATION: [facility] EXAM DATE: 03/19/2023 HISTORY: Follow-up to an [...] GROSS + MICRO EXAM (07/26/2000 7:28 PM FINANCIAL SERVICES SALES REPRESENTATIVE) Result CASE NUMBER [id number] Comment: ORDERING [...] effect, B. No evidence of malignancy sr [facility] Pathologist Alma Rosa Lopez M.D. Snomed. 07/28/2000 1030 <1> CPT code 60922/78686 MISCELLANEOUS SAMPLES / Unknown 07/26/2000 7:28 PM FINANCIAL SERVICES SALES REPRESENTATIVE 07/26/2000 7:28 PM FINANCIAL SERVICES SALES REPRESENTATIVE Historical Provider LAB - PATHOLOGY/C YTOLOGY ORDERABLES
--- OUTSIDE RECORDS SUMMARY | 2024-07-11 00:18 | XMS_ITS | Encounter Summary ---
Author Organization [facility] Address [address] [place] [address] Care Team Providers Care Plaster Die Maker Name Role Phone Ed Solano MD Primary Care Provider [phone] Encounter Details Date Type Department Care Team (Late Contact Info) Description 06/01/2023 ClusterFlunk Message Enc [facility] Medical Group Multispecialty Care - [place] [address] [address] [address] [place] [address] [facility] Provider [place] result Social History Tobacco [...] Sex Assigned at Female 07/04/2024 9:00 AM ANESTHESIA TECHNICIAN Legal Sex Female 12:28 PM ANESTHESIA TECHNICIAN Gender Identity Female 07/04/2024 9:00 AM ANESTHESIA TECHNICIAN Sexual Orientation Straight 07/04/2024 9: 00 AM ANESTHESIA TECHNICIAN documented as of this encounter Plan of Treatment Upcoming Encounters Date Type Department Care Team (Late st Contact Info) Description 07/12/2024 2:15 PM ANESTHESIA TECHNICIAN Office Visit [facility] Physical Therapy [address] [facility] [address] [place], [place] [id number] [place] [address] [place] [address] [address] [place] [address] Melody Meza, PT 1 [place] [address] 08/09/2024 7:40 AM CDT Office Visit [facility] Medical Group Multispecialty Care - [place] [address] [address] [address] [place] [address] Ed Solano MD [address] [place] [address] documented as of this encounter Visit Diagnoses Not on filedocumented in this encounter Additional Health Concerns Assessment Noted Time PHQ-9 Depression Total Score: 0 04/20/20 23 9:20 AM ANESTHESIA TECHNICIAN documented as of this encounter Care Teams Plaster Die Maker Relationship Specialty Start Date End Date Ed Solano MD [address] [place] [address] PCP - General INTERNAL MEDICINE 04/15/21 documented as of this encounter
--- OUTSIDE RECORDS SUMMARY | 2024-07-11 00:18 | XMS_ITS | Encounter Summary ---
Author Organization [facility] Address [address] [place] [address] Care Team Providers Care Fitness Floor Attendant Name Role Phone Ed Solano MD Primary Care Provider [phone] Encounter Details Date Type Department Care Team (Late Contact Info) Description 10/19/2022 Clustrix Message Enc [facility] Medical Group Multispecialty Care - [address] [place] [address] [facility], [facility] Provider nurse visit Social History [...] Sex Assigned at Female 07/04/2024 9:00 AM SUPERVISOR/PORT DIRECTOR Legal Sex Female 12:28 PM SUPERVISOR/PORT DIRECTOR Gender Identity Female 07/04/2024 9:00 AM SUPERVISOR/PORT DIRECTOR Sexual Orientation Straight 07/04/2024 9: 00 AM SUPERVISOR/PORT DIRECTOR COVID-19 Exposure Response Date Recorded In the last 10 days, have yo u been in contact with someone who was confirmed or suspected to have Coronavirus/COVID-19? No / Unsure 10/16/2022 9:03 AM CDT documented as of this encounter Plan of Treatment Upcoming Encounters Date Type Department Care Team (Late Contact Info) Description 07/12/2024 2:15 PM SUPERVISOR/PORT DIRECTOR Office Visit [facility] Physical Therapy [address] [address] Ed Solano MD [address] [address] Melody Meza, PT 1 [place] [address] 08/09/2024 7:40 AM CDT Office Visit [facility] Medical Group Multispecialty Care - [address] [address] [address] [place] [address] Ed Solano MD [facility] [address] documented as of this encounter Visit Diagnoses Not on filedocumented in this encounter Additional Health Concerns Assessment Noted Time PHQ-9 Depression Total Score: 0 04/15/20 21 8:39 AM SUPERVISOR/PORT DIRECTOR documented as of this encounter Care Teams Fitness Floor Attendant Relationship Specialty Start Date End Date Ed Solano MD [address] [place] [address] PCP - General INTERNAL MEDICINE 04/15/21 documented as of this encounter
--- OUTSIDE RECORDS SUMMARY | 2024-07-11 00:18 | XMS_ITS | Encounter Summary ---
Author Organization [facility] Address [address] [place] [address] Care Team Providers Care Health Support Specialist Name Role Phone Ed Solano MD Primary Care Provider [phone] Encounter Details Date Type Department Care Team (Latest Contact Info) Description 08/31/2022 Rocketskates Message Enc [facility] Medical Group Multispecialty Care - [place] [address] [address] [address] [place] [address] [place] [address] [place] [address] [address] [place], [place] [phone] [facility] Rockets[employer] Access Social History Tobacco Use Types Packs/Day [...] Sex Assigned at Female 07/04/2024 9:00 AM CAMPUS AMBASSADOR Legal Sex Female 12:28 PM CAMPUS AMBASSADOR Gender Identity Female 07/04/2024 9:00 AM CAMPUS AMBASSADOR Sexual Orientation Straight 07/04/2024 9: 00 AM CAMPUS AMBASSADOR COVID-19 Exposure Response Date Recorded In the last 10 days, have yo u been in contact with someone who was confirmed or suspected to have Coronavirus/COVID-19? No / Unsure 08/31/2022 8:55 AM CDT documented as of this encounter Plan of Treatment Upcoming Encounters Date Type Department Care Team (Late st Contact Info) Description 07/12/2024 2:15 PM CAMPUS AMBASSADOR Office Visit [facility] Physical Therapy [facility] [address] [place] [address] [place] [address] Melody Meza, PT 1 [place] [address] 08/09/2024 7:40 AM CDT Office Visit [facility] Medical Group Multispecialty Care [address] [address] [address] [place] [address] Ed Solano MD [address] [place] [address] documented as of this encounter Visit Diagnoses Not on filedocumented in this encounter Additional Health Concerns Assessment Noted Time PHQ-9 Depression Total Score: 0 04/15/20 21 8:39 AM CAMPUS AMBASSADOR documented as of this encounter Care Teams Health Support Specialist Relationship Specialty Start Date End Date Ed Solano MD [address] [place] [address] PCP - General INTERNAL MEDICINE 04/15/21 documented as of this encounter
--- OUTSIDE RECORDS SUMMARY | 2024-07-11 00:18 | XMS_ITS | Encounter Summary ---
Author Organization [facility] Address [address] [place] [address] Care Team Providers Care Recyclable Materials Sorter Name Role Phone Ed Solano MD Primary Care Provider [phone] Encounter Details Date Type Department Care Team (Latest Contact Info) Description 07/01/2024 Scan HEALTH INFO SRVCS Scanned, Doc Med Group Social History Tobacco Use Types Packs/Day Years Used Date Smoking Tobacco: Never Smokeless Tobacco: Never Comments:counseled by Dr Kaia melgar Alcohol Use Standard Drinks/Week Comments Never 0 (1 standard drink = 0.6 oz pur e alcohol) PHQ-2 Answer Date Recorded Patient Health Questionnaire-2 Score 0 07/04/2024 Comments No Sex and Gender Information Value Date Recorded Sex Assigned at Female 07/04/2024 9:00 AM TOLL TRANSMISSION WORKER Legal Sex Female 12:28 PM TOLL TRANSMISSION WORKER Gender Identity Female 07/04/2024 9:00 AM TOLL TRANSMISSION WORKER Sexual Orientation Straight 07/04/2024 9: 00 AM TOLL TRANSMISSION WORKER documented as of this encounter Plan of Treatment Upcoming Encounters Date Type Department Care Team (Late st Contact Info) Description 07/12/2024 2:15 PM TOLL TRANSMISSION WORKER Office Visit [facility] Physical Therapy [address] [address] Ed Solano MD [address] [facility] [address] [place] [address] Melody Meza, PT 1 [place] [address] 08/09/2024 7:40 AM CDT Office Visit [facility] Medical Group Multispecialty Care - [address] [address] [address] [place] [address] Ed Solano MD [address] [place] [address] documented as of this encounter Visit Diagnoses Not on filedocumented in this encounter Additional Health Concerns Assessment Noted Time PHQ-9 Depression Total Score: 0 04/20/20 23 9:20 AM TOLL TRANSMISSION WORKER documented as of this encounter Care Teams Recyclable Materials Sorter Relationship Specialty Start Date End Date Ed Solano MD [address] [place] [address] PCP - General INTERNAL MEDICINE 04/15/21 documented as of this encounter
--- OUTSIDE RECORDS SUMMARY | 2024-07-11 00:18 | XMS_ITS | Referral Summary ---
Author Organization [facility] Address [address] [facility] [place] [address] Care Team Providers Care Tsa Screener Name Role Phone Unavailable Primary Care Provider Unavailabl e Source Comments [facility],non-owned Affiliates and Associated Physician Practices is amultiple site organization consisting of ambulatory clinics and hospital sitesin [place], [place], [place] and [place]. This disclosure is being madepursuant to the Care Everywhere program and may not contain all information available regarding this patient. Last updated 18.[facility] Social History Tobacco Use Types Packs/Day [...] 73.9 kg (163 lb) 03/23/2024 3:42 PM SHELL PRESS OPERATOR Height 170.2 cm (5' 7 ) 03/23/2024 3:42 PM SHELL PRESS OPERATOR Body Mass Index 25.53 03/23/2024 3:42 PM SHELL PRESS OPERATOR Plan of Treatment Not on file Procedures Procedure Name Priority Date/Time Associated Diagnosis Comments MAMMO BILAT SCREENING W SHERMAN Routine 03/23/2024 3:50 PM SHELL PRESS OPERATOR Encounter for screening mammogram for malignant neoplasm of breast from Last 3 Months or Most Recently Relevant to Health Maintenance Results * Mammo Bilat Screening W Sherman (03/23/2024 3:50 PM SHELL PRESS OPERATOR) Anatomical Region Laterality Modality Breast Bilateral Mammography 03/23/2024 3:49 PM SHELL PRESS OPERATOR Impressions 03/23/2024 5:03 PM SHELL PRESS OPERATOR IMPRESSION: No mammographic evidence of malignancy. RECOMMENDATION: Screening mammography in one year, pending no interval breast concerns. Patient will receive the examination results by lay letter. OVERALL ASSESSMENT: BI-RADS CATEGORY 1: NEGATIVE. Report dictated by Gibson Torres MD (radiology technician) Pino Urban MD (fellow) and Дмитрий Oliveira MD (resident) also assisted interpretation of this study. I, Celine Nova MD, FACR have personally reviewed and interpreted this examination/study. > Interpreting Provider: Celine Nova MD, FACR on 03/23/2024 5:03 PM Narrative 03/23/2024 5:03 PM SHELL PRESS OPERATOR EXAMINATIONS: BILATERAL DIGITAL SCREENING MAMMOGRAM AND BILATERAL BREAST TOMOSYNTHESIS LOCATION: [facility] EXAM DATE: 03/23/2024 HISTORY: Screening. There [...] was also made from breast imaging from [facility] dated 02/12/2022 TECHNIQUE: Tomosynthesis (3D) and [...]
--- OUTSIDE RECORDS SUMMARY | 2024-07-11 00:18 | XMS_ITS | Encounter Summary ---
Author Organization [facility] Address [address] [place] [address] Care Team Providers Care Apron Trimmer Name Role Phone Ed Solano MD Primary Care Provider [phone] Encounter Details Date Type Department Care Team (Latest Contact Info) Description 03/09/2023 Rewardpodt Message Enc [facility] Medical Group Multispecialty Care [facility] [address] [address] [address] [place] [address] [place] [address] [place] [address] [address] [place], [place] [phone] Follow up diagnostic mammogram Social History Tobacco [...] Sex Assigned at Female 07/04/2024 9:00 AM CRAFT COORDINATOR Legal Sex Female 12:28 PM CRAFT COORDINATOR Gender Identity Female 07/04/2024 9:00 AM CRAFT COORDINATOR Sexual Orientation Straight 07/04/2024 9: 00 AM CRAFT COORDINATOR documented as of this encounter Plan of Treatment Upcoming Encounters Date Type Department Care Team (Late st Contact Info) Description 07/12/2024 2:15 PM CRAFT COORDINATOR Office Visit [facility] Physical Therapy [address] [place] [address] [place] [address] [place] [address] Melody Meza, PT 1 [place] [address] 08/09/2024 7:40 AM CDT Office Visit [facility] Medical Group Multispecialty Care - [place] [address] [address] [address] [place] [address] Ed Solano MD [facility] [address] [address] documented as of this encounter Visit Diagnoses Not on filedocumented in this encounter Additional Health Concerns Assessment Noted Time PHQ-9 Depression Total Score: 0 04/15/20 21 8:39 AM CRAFT COORDINATOR documented as of this encounter Care Teams Apron Trimmer Relationship Specialty Start Date End Date Ed Solano MD [address] [place] [address] PCP - General INTERNAL MEDICINE 04/15/21 documented as of this encounter
--- OUTSIDE RECORDS SUMMARY | 2024-07-11 00:18 | XMS_ITS | Clinical Summary ---
Author Organization [facility] Address [address] [place] [address] Care Team Providers Care Health Unit Coordinator Name Role Phone Unavailable Primary Care Provider Unavailabl e Source Comments [facility],non-owned Affiliates and Associated Physician Practices is amultiple site organization consisting of ambulatory clinics and hospital sitesin [place], [place], [place] and [place]. This disclosure is being madepursuant to the [...] 73.9 kg (163 lb) 03/23/2024 3:42 PM MEDICAL RECORDS ANALYST Height 170.2 cm (5' 7 ) 03/23/2024 3:42 PM MEDICAL RECORDS ANALYST Body Mass Index 25.53 03/23/2024 3:42 PM MEDICAL RECORDS ANALYST Plan of Treatment Health Maintenance Due Date [...] SCREENING W SHERMAN Routine 03/23/2024 3:50 PM MEDICAL RECORDS ANALYST Encounter for screening mammogram for malignant neoplasm of breast from Last 3 Months or Most Recently Relevant to Health Maintenance Results * Mammo Bilat Screening W Sherman (03/23/2024 3:50 PM MEDICAL RECORDS ANALYST) Anatomical Region Laterality Modality Breast Bilateral Mammography 03/23/2024 3:49 PM MEDICAL RECORDS ANALYST Impressions 03/23/2024 5:03 PM MEDICAL RECORDS ANALYST IMPRESSION: No mammographic evidence of malignancy. RECOMMENDATION: Screening mammography in one year, pending no interval breast concerns. Patient will receive the examination results by lay letter. OVERALL ASSESSMENT: BI-RADS CATEGORY 1: NEGATIVE. Report dictated by Gibson Torres MD (residential property consultant) Pino Urban MD (fellow) and Дмитрий Oliveira MD (resident) also assisted interpretation of this study. I, Celine Nova MD, FACR have personally reviewed and interpreted this examination/study. > Interpreting Provider: Celine Nova MD, FACR on 03/23/2024 5:03 PM Narrative 03/23/2024 5:03 PM MEDICAL RECORDS ANALYST EXAMINATIONS: BILATERAL DIGITAL SCREENING MAMMOGRAM AND BILATERAL BREAST TOMOSYNTHESIS LOCATION: [facility] EXAM DATE: 03/23/2024 HISTORY: Screening. There [...] was made from prior breast imaging from [facility] dated 03/19/2023 and 02/22/2023. Comparison was also made from breast imaging from [facility] dated 02/12/2022 TECHNIQUE: Tomosynthesis (3D) and reconstructed [...]
--- OUTSIDE RECORDS SUMMARY | 2024-07-11 00:18 | XMS_ITS | Clinical Summary ---
Author Organization [facility] Address [facility] [place] [address] Care Team Providers Care Senior Director Marketing Name Role Phone Ed Solano MD Primary Care Provider [phone] Allergies Active Allergy Reactions Criticality Noted Date Comments Omeprazole Other (see comment) 03/03/2022 Burning sensation in the chris Penicillins Unknown 04/15/2021 Pt states she had a allergic reaction as a child. Medications meclizine (ANTIVERT) 12.5 MG tablet 07/01/2024 Active azelastine (ASTELIN) 0.1 % nasal sprayIndication s:Environmental and seasonal allergies 1 spray by Nasal route 2 (two) times daily. Use in each nostril as directed 30 mL 1 07/04/2024 Active fluticasone propionate (FLONASE) 50 MCG/ACT nasal sprayIndication s:Environmental and seasonal allergies 2 sprays by Nasal route daily. 16 g 5 07/04/2024 Active Active Problems Problem Noted Date Diagnosed Date History of solitary pulmonary nodule 07/14/2021 Postmenopausal 04/15/2021 Resolved Problems Problem Noted Date Diagnosed Date Resolved Date Prediabetes 04/16/2021 07/14/2021 Encounters Date Type Department Care Team Description 07/04/2024 8:40 AM CERTIFIED HEARING INSTRUMENT DISPENSER [facility] [place] [address] [place] [address] Ed Solano MD ER F/U (Vertigo. Has has sx since ER visit//Had flu shot done at [facility]); Dizziness 07/04/2024 Travel 07/01/2024 Scan [facility] INFO SRVCS Scanned, [facility] from Last 3 Months Immunizations Name Administration Dates Next Due Fluzone High Dose - >Age 65 (Prefilled Syringe) 02/13/2022,02/14/2021 Influenza (Generic) 02/06/2020,03/11/2019,2016 Influenza Adult (Generic) 02/08/2023 Influenza Peds (Generic) 01/24/2023 MODERNA COVID-19 (12+) MRNA, LNP-S, PF, 100 MCG/ 0.5 ML DOSE 03/29/2021,08/13/2020,07/16/2020 MODERNA COVID-19 (INVESTIGATIVE RESEARCH SPECIALIST CARLENE MARIANNE), MRNA, LNP-S, PF, 50 MCG/ [...] Dr Solano Alcohol Use Standard Drinks/Week Comments Not Currently 0 (1 standard drink = 0.6 oz pur e alcohol) PHQ-2 Answer Date Recorded Patient Health Questionnaire-2 Score 0 07/04/2024 Comments No Sex and Gender Information Value Date Recorded Sex Assigned at Female 07/04/2024 9:00 AM CERTIFIED HEARING INSTRUMENT DISPENSER Legal Sex Female 12:28 PM CERTIFIED HEARING INSTRUMENT DISPENSER Gender Identity Female 07/04/2024 9:00 AM CERTIFIED HEARING INSTRUMENT DISPENSER Sexual Orientation Straight 07/04/2024 9: 00 AM CERTIFIED HEARING INSTRUMENT DISPENSER Last Filed Vital Signs Vital Sign Reading Time Taken Comments Blood Pressure 152/88 07/04/2024 9:01 AM CERTIFIED HEARING INSTRUMENT DISPENSER Pulse 56 07/04/2024 8:36 AM CERTIFIED HEARING INSTRUMENT DISPENSER Temperature 36.4 C (97.6 F) 07/04/2024 8:36 AM CERTIFIED HEARING INSTRUMENT DISPENSER Respiratory Rate 18 07/04/2024 8:36 AM CERTIFIED HEARING INSTRUMENT DISPENSER Oxygen Saturation 99% 07/04/2024 8:36 AM CERTIFIED HEARING INSTRUMENT DISPENSER Inhaled Oxygen Concentration - - Weight 76.1 kg (167 lb 12.8 oz) 07/04/2024 8:36 AM CERTIFIED HEARING INSTRUMENT DISPENSER Height 170.2 cm (5' 7 ) 07/04/2024 8:36 AM CERTIFIED HEARING INSTRUMENT DISPENSER Body Mass Index 26.28 07/04/2024 8:36 AM CERTIFIED HEARING INSTRUMENT DISPENSER Plan of Treatment Upcoming Encounters Date Type Department Care Team (Late st Contact Info) Description 07/12/2024 2:15 PM CERTIFIED HEARING INSTRUMENT DISPENSER Office Visit [facility] Physical Therapy [address] [place] [address] Ed Solano MD [address] [place] [address] Melody Meza, PT 1 [place] [address] 08/09/2024 7:40 AM CDT [facility] [place] [address] [address] [place] [address] Ed Solano MD [address] [place] [address] Health Maintenance Due Date Last Done Comments Colorectal Cancer Screening Colonoscopy (10 Years) 10/07/2015 10/06/2005, 10/06/2005 Pneumococcal Vaccine: 65+ Years (1 of 1 - PCV) 01/26/2020 Mammogram Screening 03/23/2026 03/23/2024, 03/19/2023, 03/19/2023, Additional history exists RSV Immunization or 60+ Years (1 - 1-dose 75+ series) 2030 DTaP, Tdap and Td Vaccines (2 - Td or Tdap) 07/14/2031 07/14/2021 Hepatitis C Completed 04/15/2021 Dexa Scan (General) Completed 05/26/2023, Zoster Vaccines Completed 05/27/2023, 03/22/2023 COVID-19 Vaccine Completed 01/21/2024, , 02/23/2023, Additional history exists Influenza Adult Completed 02/23/2024, 01/16, 01/24/2023, Additional history exists PHQ-2 (Physician [place]) Completed 07/04/2024 Meningococcal B Vaccine Aged Out No l [...] BONE DENSITY/DEXA Routine 05/26/2023 12: 18 PM CERTIFIED HEARING INSTRUMENT DISPENSER Postmenopausal MAMMOGRAM GENERIC (SCAN ORDER) 03/19/2023 HEPATITIS C ANTIBODY Routine 04/15/2021 7:55 AM CERTIFIED HEARING INSTRUMENT DISPENSER Annual physical exam Encounter for medical examination to establish care General medical exam Encounter for hepatitis C screening test for low risk patient COLONOSCOPY GENERIC (SCAN ORDER) 10/06/2005 from Last 3 Months or Most Recently Relevant to Health Maintenance Results * BONE DENSITY/DEXA (05/26/2023 12:18 PM CERTIFIED HEARING INSTRUMENT DISPENSER) Anatomical Region Laterality Modality Bone Mammography 05/26/2023 1:45 PM CERTIFIED HEARING INSTRUMENT DISPENSER Impressions 05/26/2023 1:47 PM CERTIFIED HEARING INSTRUMENT DISPENSER =====IMPRESSION:===== The patient bone density osteopenic according to the World Health Organization (WHO) criteria 10 year fracture risk: Major osteoporotic fracture: 3.9 % Hip fracture: 0.4 % Ordered By: ED SOLANO Interpreted By: Vinayak Spear MD, 05/26/2023 1:45 PM Narrative 05/26/2023 1:47 PM CERTIFIED HEARING INSTRUMENT DISPENSER EXAMINATION: Bone Density Axial EXAM DATE/TIME: 05/26/2023 [...] (03/19/2023) Anatomical Region Laterality Modality Other 03/19/2023 [facility] Scanned SCANNING Final Resu lt * HEPATITIS C ANTIBODY (04/15/2021 7:55 AM CERTIFIED HEARING INSTRUMENT DISPENSER) HEPATITIS C AB NON-REACTI VE NON-REACT DILIP 04/15/2021 9:50 PM CERTIFIED HEARING INSTRUMENT DISPENSER [facility] Comment: ANTIBODIES TO HCV NOT DETECTED. DOES NOT EXCLUDE THE POSSIBILITY OF EXPOSURE TO HCV. 04/15/2021 7:55 AM CERTIFIED HEARING INSTRUMENT DISPENSER Ed Solano MD LABORATORY Final Result [facility] [address] [place] [address], [id number] * COLONOSCOPY GENERIC (10/06/2005) 10/06/2005 Narrative 10/06/2005 Ordered by an unspecified provider. us Documents Scanned SCANNING Final Result from Last 3 Months or Most Recently Relevant to Health Maintenance Insurance [facility] Care Teams Senior Director Marketing Relationship Specialty Start Date End Date Ed Solano MD [address] [facility] [address] [place] [address] PCP - General INTERNAL MEDICINE 04/15/21
--- OUTSIDE RECORDS SUMMARY | 2024-07-11 00:18 | XMS_ITS | Encounter Summary ---
Author Organization [facility] Address [address] [place] [address] Care Team Providers Care Oven Heater Name Role Phone Ed Solano MD Primary Care Provider [phone] Encounter Details Date Type Department Care Team (Latest Contact Info) Description 09/01/2022 [employer] Message Enc [facility] Multispecialty Care - [address] [place], [place] [id number] [facility] Provider ultrasound ordered Social History Tobacco Use [...] Sex Assigned at Female 07/04/2024 9:00 AM FACING END TRIMMER Legal Sex Female 12:28 PM FACING END TRIMMER Gender Identity Female 07/04/2024 9:00 AM FACING END TRIMMER Sexual Orientation Straight 07/04/2024 9: 00 AM FACING END TRIMMER COVID-19 Exposure Response Date Recorded In the last 10 days, have yo u been in contact with someone who was confirmed or suspected to have Coronavirus/COVID-19? No / Unsure 08/31/2022 8:55 AM CDT documented as of this encounter Plan of Treatment Upcoming Encounters Date Type Department Care Team (Late st Contact Info) Description 07/12/2024 2:15 PM FACING END TRIMMER Office Visit [facility] Physical Therapy [address] [address] Ed Solano MD [facility] [address] [address] Melody Meza, PT 1 [place] [address] 08/09/2024 7:40 AM CDT Office Visit [facility] Multispecialty Care - [place] [address] [address] [place] [address] Ed Solano MD [address] [place] [address] documented as of this encounter Visit Diagnoses Not on filedocumented in this encounter Additional Health Concerns Assessment Noted Time PHQ-9 Depression Total Score: 0 04/15/20 21 8:39 AM FACING END TRIMMER documented as of this encounter Care Teams Oven Heater Relationship Specialty Start Date End Date Ed Solano MD [address] [place] [address] PCP - General INTERNAL MEDICINE 04/15/21 documented as of this encounter
--- OUTSIDE RECORDS SUMMARY | 2024-07-11 00:18 | XMS_ITS | Encounter Summary ---
Author Organization [facility] Address [address] [place] [address] Care Team Providers Care Instrumentation And Controls Designer Name Role Phone Ed Solano MD Primary Care Provider [phone] Encounter Details Date Type Department Care Team (Late Contact Info) Description 10/19/2022 [employer] Message Enc [facility] Multispecialty Care - [address] [place] [address] [employer], [facility] Provider [place] result Social History Tobacco Use [...] Sex Assigned at Female 07/04/2024 9:00 AM CHILD CARE TEAM LEAD Legal Sex Female 12:28 PM CHILD CARE TEAM LEAD Gender Identity Female 07/04/2024 9:00 AM CHILD CARE TEAM LEAD Sexual Orientation Straight 07/04/2024 9: 00 AM CHILD CARE TEAM LEAD COVID-19 Exposure Response Date Recorded In the last 10 days, have yo u been in contact with someone who was confirmed or suspected to have Coronavirus/COVID-19? No / Unsure 10/16/2022 9:03 AM CDT documented as of this encounter Plan of Treatment Upcoming Encounters Date Type Department Care Team (Late Contact Info) Description 07/12/2024 2:15 PM CHILD CARE TEAM LEAD Office Visit [facility] Physical Therapy [address] [address] Ed Solano MD [address] [address] Melody Meza, PT 1 [place] [address] 08/09/2024 7:40 AM CDT Office Visit [facility] Multispecialty Care - [place] [address] [address] [place] [address] Ed Solano MD [facility] [address] [address] documented as of this encounter Visit Diagnoses Not on filedocumented in this encounter Additional Health Concerns Assessment Noted Time PHQ-9 Depression Total Score: 0 04/15/20 21 8:39 AM CHILD CARE TEAM LEAD documented as of this encounter Care Teams Instrumentation And Controls Designer Relationship Specialty Start Date End Date Ed Solano MD [address] [place] [address] PCP - General INTERNAL MEDICINE 04/15/21 documented as of this encounter
--- NOTE | 2024-07-11 04:18 | ECG_ITS ---
Test Date: 2024-07-11 04:36:34 Measurements Intervals [place] Rate: 45 P: 45 [place]: 169 QRS: 28 QRSD: 89 T: 13 QT: 449 QTc: 392 Interpretive Statements SINUS BRADYCARDIA DELAYED PRECORDIAL R/S TRANSITION BORDERLINE T WAVE ABNORMALITY- ANTERIOR LEADS ABNORMAL ECG Compared to ECG 07/01/2024 10:44:34 HEART RATE HAS DECREASED Electronically Signed On 07-11-2024 06:52:19 FUR LINER by Seymoru Salas D.O.
[2024-07-11 04:20] VITALS: BP 158/87; PULSE 60; RESP 16; TEMP 36.6; O2SAT 99
--- OUTSIDE RECORDS SUMMARY | 2024-07-11 04:25 | XMS_ITS | Encounter Summary ---
Author Organization [facility] Address [address] [place] [address] Care Team Providers Care Graining Press Operator Name Role Phone Ed Solano MD Primary Care Provider Encounter Details Date Type Department Care Team (Latest Contact Info) Description 03/09/2023 [employer] Message Enc [facility] Medical Group Multispecialty Care [facility] [address] [place] [address] [address] [place] [address] [place] [address] [place] [address] [address] [place], [place] [id number] Follow up diagnostic mammogram Social History Tobacco Use Types Packs/Day Years Used Date Smoking Tobacco: Never Smokeless Tobacco: Never Comments:counseled by Dr Kaia emlgar Alcohol Use Standard Drinks/Week Comments Never 0 (1 standard drink = 0.6 oz pur e alcohol) PHQ-2 Answer Date Recorded PHQ-2 Score - If the patient scores above 3, please move on to questions 3-9 0 04/15/2021 Comments No Sex and Gender Information Value Date Recorded Sex Assigned at Female 07/04/2024 9:00 AM MOBILITY ARCHITECT Legal Sex Female 12:28 PM MOBILITY ARCHITECT Gender Identity Female 07/04/2024 9:00 AM MOBILITY ARCHITECT Sexual Orientation Straight 07/04/2024 9: 00 AM MOBILITY ARCHITECT documented as of this encounter Plan of Treatment Upcoming Encounters Date Type Department Care Team (Late st Contact Info) Description 07/12/2024 2:15 PM MOBILITY ARCHITECT Office Visit [facility] Physical Therapy [address] [place] [address] [place] [address] [place] [address] Melody Meza, PT 1 [place] [address] 08/09/2024 7:40 AM CDT Office Visit [facility] Multispecialty Care - [place] [address] [address] [place] [address] Ed Solano MD [facility] [address] [address] documented as of this encounter Visit Diagnoses Not on filedocumented in this encounter Additional Health Concerns Assessment Noted Time PHQ-9 Depression Total Score: 0 04/15/20 21 8:39 AM MOBILITY ARCHITECT documented as of this encounter Care Teams Graining Press Operator Relationship Specialty Start Date End Date Ed Solano MD [address] [place] [address] PCP - General INTERNAL MEDICINE 04/15/21 documented as of this encounter
--- OUTSIDE RECORDS SUMMARY | 2024-07-11 04:25 | XMS_ITS | Encounter Summary ---
Author Organization [facility] Address [address] [place] [address] Care Team Providers Care Traffic Supervisor Name Role Phone Ed Solano MD Primary Care Provider [phone] Encounter Details Date Type Department Care Team (Latest Contact Info) Description 08/31/2022 [employer] Message Enc [facility] Group Multispecialty Care - [place] [address] [address] [place] [address] [place] [address] [place] [address] [address] [place], [place] [phone] [facility] [employer] Access Social History Tobacco Use Types Packs/Day [...] Sex Assigned at Female 07/04/2024 9:00 AM OPERATOR CONTROL ROOM Legal Sex Female 12:28 PM OPERATOR CONTROL ROOM Gender Identity Female 07/04/2024 9:00 AM OPERATOR CONTROL ROOM Sexual Orientation Straight 07/04/2024 9: 00 AM OPERATOR CONTROL ROOM COVID-19 Exposure Response Date Recorded In the last 10 days, have yo u been in contact with someone who was confirmed or suspected to have Coronavirus/COVID-19? No / Unsure 08/31/2022 8:55 AM CDT documented as of this encounter Plan of Treatment Upcoming Encounters Date Type Department Care Team (Late st Contact Info) Description 07/12/2024 2:15 PM OPERATOR CONTROL ROOM Office Visit [facility] Physical Therapy [facility] [address] [address] [place] [address] [place] [address] Melody Meza, PT 1 [place] [address] 08/09/2024 7:40 AM CDT Office Visit [facility] Multispecialty Care [place] [address] [address] [place] [address] Ed Solano MD [address] [place] [address] documented as of this encounter Visit Diagnoses Not on filedocumented in this encounter Additional Health Concerns Assessment Noted Time PHQ-9 Depression Total Score: 0 04/15/20 21 8:39 AM OPERATOR CONTROL ROOM documented as of this encounter Care Teams Traffic Supervisor Relationship Specialty Start Date End Date Ed Solano MD [address] [place] [address] PCP - General INTERNAL MEDICINE 04/15/21 documented as of this encounter
--- OUTSIDE RECORDS SUMMARY | 2024-07-11 04:25 | XMS_ITS | Encounter Summary ---
Author Organization [facility] Address [address] [place] [address] Care Team Providers Care Vertical Punch Operator Name Role Phone Ed Solano MD Primary Care Provider [phone] Encounter Details Date Type Department Care Team [...] Sex Assigned at Female 07/04/2024 9:00 AM OTOLARYNGOLOGY TEACHER Legal Sex Female 12:28 PM OTOLARYNGOLOGY TEACHER Gender Identity Female 07/04/2024 9:00 AM OTOLARYNGOLOGY TEACHER Sexual Orientation Straight 07/04/2024 9: 00 AM OTOLARYNGOLOGY TEACHER documented as of this encounter Plan of Treatment Upcoming Encounters Date Type Department Care Team (Late st Contact Info) Description 07/12/2024 2:15 PM OTOLARYNGOLOGY TEACHER Office Visit [facility] Physical Therapy [address] [address] Ed Solano MD [address] [facility] [address] [place] [address] Melody Meza, PT 1 [place] [address] 08/09/2024 7:40 AM CDT Office Visit [facility] Multispecialty Care - [place] [address] [address] [place] [address] Ed Solano MD [address] [place] [address] documented as of this encounter Visit Diagnoses Not on filedocumented in this encounter Additional Health Concerns Assessment Noted Time PHQ-9 Depression Total Score: 0 04/20/20 23 9:20 AM OTOLARYNGOLOGY TEACHER documented as of this encounter Care Teams Vertical Punch Operator Relationship Specialty Start Date End Date Ed Solano MD [address] [place] [address] PCP - General INTERNAL MEDICINE 04/15/21 documented as of this encounter
--- OUTSIDE RECORDS SUMMARY | 2024-07-11 04:25 | XMS_ITS | Encounter Summary ---
Author Organization [facility] Address [address] [place] [address] Care Team Providers Care Family Dentist Name Role Phone Ed Solano MD Primary Care Provider [phone] Encounter Details Date Type Department Care Team (Latest Contact Info) Description 02/16/2022 [employer] Message Enc [facility] Group Multispecialty Care - [place] [address] [address] [place] [address] [place] [address] [place] [address] [place], [place] [phone] Mammogram results Social History Tobacco Use Types [...] Sex Assigned at Female 07/04/2024 9:00 AM QUALITY ASSURANCE ASSESSOR Legal Sex Female 12:28 PM QUALITY ASSURANCE ASSESSOR Gender Identity Female 07/04/2024 9:00 AM QUALITY ASSURANCE ASSESSOR Sexual Orientation Straight 07/04/2024 9: 00 AM QUALITY ASSURANCE ASSESSOR COVID-19 Exposure Response Date Recorded In the last 10 days, have yo u been in contact with someone who was confirmed or suspected to have Coronavirus/COVID-19? No / Unsure 01/20/2022 8:36 AM CDT documented as of this encounter Plan of Treatment Upcoming Encounters Date Type Department Care Team (Late st Contact Info) Description 07/12/2024 2:15 PM QUALITY ASSURANCE ASSESSOR Office Visit [facility] Physical Therapy [address] [place] [address] Ed Solano MD [address] [address] Melody Meza, PT 1 [place] [address] 08/09/2024 7:40 AM CDT Office Visit [facility] Group Multispecialty Care - [place] [address] [address] [place] [address] Ed Solano MD [address] [place] [address] documented as of this encounter Visit Diagnoses Not on filedocumented in this encounter Additional Health Concerns Assessment Noted Time PHQ-9 Depression Total Score: 0 04/15/20 21 8:39 AM QUALITY ASSURANCE ASSESSOR documented as of this encounter Care Teams Family Dentist Relationship Specialty Start Date End Date Ed Solano MD [address] [place] [address] PCP - General INTERNAL MEDICINE 04/15/21 documented as of this encounter
--- OUTSIDE RECORDS SUMMARY | 2024-07-11 04:25 | XMS_ITS | Clinical Summary ---
Author Organization [facility] Address [address] [facility] [place] [address] Care Team Providers Care Barber Apprentice Name Role Phone Unavailable Primary Care Provider Unavailabl e Source Comments [facility],non-owned Affiliates and Associated Physician Practices is amultiple site organization consisting of ambulatory clinics and hospital sitesin [place], [place], [place] and [place]. This disclosure is being madepursuant to the Care Everywhere program and may not contain all information available regarding this patient. Last updated 18.[facility] Social History Tobacco Use Types Packs/Day Years [...] 73.9 kg (163 lb) 03/23/2024 3:42 PM BOOTH SUPERVISOR Height 170.2 cm (5' 7 ) 03/23/2024 3:42 PM BOOTH SUPERVISOR Body Mass Index 25.53 03/23/2024 3:42 PM BOOTH SUPERVISOR Plan of Treatment Health Maintenance Due Date [...] SCREENING W SHERMAN Routine 03/23/2024 3:50 PM BOOTH SUPERVISOR Encounter for screening mammogram for malignant neoplasm of breast from Last 3 Months or Most Recently Relevant to Health Maintenance Results * Mammo Bilat Screening W Sherman (03/23/2024 3:50 PM BOOTH SUPERVISOR) Anatomical Region Laterality Modality Breast Bilateral Mammography 03/23/2024 3:49 PM BOOTH SUPERVISOR Impressions 03/23/2024 5:03 PM BOOTH SUPERVISOR IMPRESSION: No mammographic evidence of malignancy. RECOMMENDATION: Screening mammography in one year, pending no interval breast concerns. Patient will receive the examination results by lay letter. OVERALL ASSESSMENT: BI-RADS CATEGORY 1: NEGATIVE. Report dictated by Gibson Torres MD (residential substance abuse counselor) Pino Urban MD (fellow) and Дмитрий Oliveira MD (resident) also assisted interpretation of this study. I, Celine Nova MD, FACR have personally reviewed and interpreted this examination/study. > Interpreting Provider: Celine Nova MD, FACR on 03/23/2024 5:03 PM Narrative 03/23/2024 5:03 PM BOOTH SUPERVISOR EXAMINATIONS: BILATERAL DIGITAL SCREENING MAMMOGRAM AND BILATERAL BREAST TOMOSYNTHESIS LOCATION: [place] [facility] EXAM DATE: 03/23/2024 HISTORY: Screening. There [...] was made from prior breast imaging from [facility] dated 03/19/2023 and 02/22/2023. Comparison was also made from breast imaging from [facility] dated 02/12/2022 TECHNIQUE: Tomosynthesis (3D) and [...]
--- OUTSIDE RECORDS SUMMARY | 2024-07-11 04:25 | XMS_ITS | Encounter Summary ---
Author Organization [facility] Address [address] [place] [address] Care Team Providers Care Miller Helper Distillery Name Role Phone Ed Solano MD Primary Care Provider [phone] Encounter Details Date Type Department Care Team (Late st Contact Info) Description 05/27/2023 MyChart Message Enc [facility] Medical Group Multispecialty Care - [place] [address] [place] [address] [address] [place], [place] [id number] [place] [address] [place] [address] [address] [place], [place] [id number] Vitamin D? Social History Tobacco Use Types [...] Sex Assigned at Female 07/04/2024 9:00 AM PHARMACEUTICAL BOTANIST Legal Sex Female 12:28 PM PHARMACEUTICAL BOTANIST Gender Identity Female 07/04/2024 9:00 AM PHARMACEUTICAL BOTANIST Sexual Orientation Straight 07/04/2024 9: 00 AM PHARMACEUTICAL BOTANIST documented as of this encounter Plan of Treatment Upcoming Encounters Date Type Department Care Team (Late st Contact Info) Description 07/12/2024 2:15 PM PHARMACEUTICAL BOTANIST Office Visit [facility] Physical Therapy [address] [facility] [place], [place] [address] Ed Solano MD [address] [address] Melody Meza, PT 1 [place] [address] 08/09/2024 7:40 AM CDT Office Visit [facility] Medical Group Multispecialty Care - [place] [address] [address] [place] [address] Ed Solano MD [address] [address] documented as of this encounter Visit Diagnoses Not on filedocumented in this encounter Additional Health Concerns Assessment Noted Time PHQ-9 Depression Total Score: 0 04/20/20 23 9:20 AM PHARMACEUTICAL BOTANIST documented as of this encounter Care Teams Miller Helper Distillery Relationship Specialty Start Date End Date Ed Solano MD [address] [place] [address] PCP - General INTERNAL MEDICINE 04/15/21 documented as of this encounter
--- OUTSIDE RECORDS SUMMARY | 2024-07-11 04:25 | XMS_ITS | Encounter Summary ---
Author Organization [facility] Address [address] [place] [address] Care Team Providers Care Candy Catcher Name Role Phone Ed Solano MD Primary Care Provider [phone] Encounter Details Date Type Department Care Team (Late Contact Info) Description 10/19/2022 Accolo Message Enc [facility] Medical Group Multispecialty Care - [address] [place] [address] [employer], [facility] Provider [place] result Social History [...] Sex Assigned at Female 07/04/2024 9:00 AM BRIDGE INSTRUCTOR Legal Sex Female 12:28 PM BRIDGE INSTRUCTOR Gender Identity Female 07/04/2024 9:00 AM BRIDGE INSTRUCTOR Sexual Orientation Straight 07/04/2024 9: 00 AM BRIDGE INSTRUCTOR COVID-19 Exposure Response Date Recorded In the last 10 days, have yo u been in contact with someone who was confirmed or suspected to have Coronavirus/COVID-19? No / Unsure 10/16/2022 9:03 AM CDT documented as of this encounter Plan of Treatment Upcoming Encounters Date Type Department Care Team (Late Contact Info) Description 07/12/2024 2:15 PM BRIDGE INSTRUCTOR Office Visit [facility] Physical Therapy [address] [address] Ed Solano MD [address] [address] Melody Meza, PT 1 [place] [address] 08/09/2024 7:40 AM CDT Office Visit [facility] Medical Group Multispecialty Care - [place] [address] [address] [place] [address] Ed Solano MD [facility] [address] [address] documented as of this encounter Visit Diagnoses Not on filedocumented in this encounter Additional Health Concerns Assessment Noted Time PHQ-9 Depression Total Score: 0 04/15/20 21 8:39 AM BRIDGE INSTRUCTOR documented as of this encounter Care Teams Candy Catcher Relationship Specialty Start Date End Date Ed Solano MD [address] [place] [address] PCP - General INTERNAL MEDICINE 04/15/21 documented as of this encounter
--- OUTSIDE RECORDS SUMMARY | 2024-07-11 04:25 | XMS_ITS | Referral Summary ---
Author Organization [facility] Address [address] [facility] [place] [address] Care Team Providers Care Program Project Manager Name Role Phone Unavailable Primary Care Provider Unavailabl e Source Comments [facility],non-owned Affiliates and Associated Physician Practices is amultiple site organization consisting of ambulatory clinics and hospital sitesin [place], [place], [place] and [place]. This disclosure is being madepursuant to the Care Everywhere program and may not contain all information available regarding this patient. Last updated 18.[facility] Social History Tobacco Use Types Packs/Day Years [...] 73.9 kg (163 lb) 03/23/2024 3:42 PM TOWER EQUIPMENT REPAIRER Height 170.2 cm (5' 7 ) 03/23/2024 3:42 PM TOWER EQUIPMENT REPAIRER Body Mass Index 25.53 03/23/2024 3:42 PM TOWER EQUIPMENT REPAIRER Plan of Treatment Not on file Procedures Procedure Name Priority Date/Time Associated Diagnosis Comments MAMMO BILAT SCREENING W SHERMAN Routine 03/23/2024 3:50 PM TOWER EQUIPMENT REPAIRER Encounter for screening mammogram for malignant neoplasm of breast from Last 3 Months or Most Recently Relevant to Health Maintenance Results * Mammo Bilat Screening W Sherman (03/23/2024 3:50 PM TOWER EQUIPMENT REPAIRER) Anatomical Region Laterality Modality Breast Bilateral Mammography 03/23/2024 3:49 PM TOWER EQUIPMENT REPAIRER Impressions 03/23/2024 5:03 PM TOWER EQUIPMENT REPAIRER IMPRESSION: No mammographic evidence of malignancy. RECOMMENDATION: Screening mammography in one year, pending no interval breast concerns. Patient will receive the examination results by lay letter. OVERALL ASSESSMENT: BI-RADS CATEGORY 1: NEGATIVE. Report dictated by Gibson Torres MD (student life vice president) Pino Urban MD (fellow) and Дмитрий Oliveira MD (resident) also assisted interpretation of this study. I, Celine Nova MD, FACR have personally reviewed and interpreted this examination/study. > Interpreting Provider: Celine Nova MD, FACR on 03/23/2024 5:03 PM Narrative 03/23/2024 5:03 PM TOWER EQUIPMENT REPAIRER EXAMINATIONS: BILATERAL DIGITAL SCREENING MAMMOGRAM AND BILATERAL BREAST TOMOSYNTHESIS LOCATION: [facility] EXAM DATE: 03/23/2024 HISTORY: Screening. [...] was made from prior breast imaging from [facility] dated 03/19/2023 and 02/22/2023. Comparison was also made from breast imaging from [facility] dated 02/12/2022 TECHNIQUE: Tomosynthesis (3D) [...]
--- OUTSIDE RECORDS SUMMARY | 2024-07-11 04:25 | XMS_ITS | Patient Health Summary ---
Author Organization [facility] Address [address] [place] [address] Care Team Providers Care Millinery Department Manager Name Role Phone Unavailable Primary Care Provider Unavailabl e Note from [facility],non-owned Affiliates and Associated Physician Practices is amultiple site organization consisting of ambulatory clinics and hospital sitesin [place], [place] and [place]. This disclosure is being madepursuant to the Care Everywhere program and may not contain all information available regarding this patient. Last updated 18.[facility] Social History Tobacco Use Types Packs/Day Years [...] 73.9 kg (163 lb) 03/23/2024 3:42 PM INDUCTION BRAZER Height 170.2 cm (5' 7 ) 03/23/2024 3:42 PM INDUCTION BRAZER Body Mass Index 25.53 03/23/2024 3:42 PM INDUCTION BRAZER Procedures * MAMMO BILAT SCREENING W SHERMAN(Performed [...] Bilat Screening W Sherman (03/23/2024 3:50 PM INDUCTION BRAZER) Only the most recent of2 resultswithin the time period is included. Anatomical Region Laterality Modality Breast Bilateral Mammography 03/23/2024 3:49 PM INDUCTION BRAZER Impressions 03/23/2024 5:03 PM INDUCTION BRAZER IMPRESSION: No mammographic evidence of malignancy. RECOMMENDATION: Screening mammography in one year, pending no interval breast concerns. Patient will receive the examination results by lay letter. OVERALL ASSESSMENT: BI-RADS CATEGORY 1: NEGATIVE. Report dictated by Gibson Torres MD (vice president mission integration) Pino Urban MD (fellow) and Дмитрий Oliveira MD (resident) also assisted interpretation of this study. I, Celine Nova MD, FACR have personally reviewed and interpreted this examination/study. > Interpreting Provider: Celine Nova MD, FACR on 03/23/2024 5:03 PM Narrative 03/23/2024 5:03 PM INDUCTION BRAZER EXAMINATIONS: BILATERAL DIGITAL SCREENING MAMMOGRAM AND BILATERAL BREAST TOMOSYNTHESIS LOCATION: [facility] EXAM DATE: 03/23/2024 HISTORY: Screening. [...] was made from prior breast imaging from [facility] dated 03/19/2023 and 02/22/2023. Comparison was also made from breast imaging from [facility] dated 02/12/2022 TECHNIQUE: Tomosynthesis (3D) and [...] NEGATIVE. Report dictated by Ervin Zacarias M.D. (vice president mission integration). Asaf Brady M.D. assisted in the evaluation and interpretation of the study. I, Celine Nova MD have personally reviewed and interpreted this examination/study. > Interpreting Provider: Celine Nova MD on 03/19/2023 8:42 AM Narrative 03/19/2023 8:42 AM CDT EXAMINATIONS: 1. LEFT DIGITAL DIAGNOSTIC MAMMOGRAM AND TOMOSYNTHESIS WITH CAD AND 2. LIMITED LEFT BREAST ULTRASOUND (COMBINED REPORT) LOCATION: [facility] EXAM DATE: 03/19/2023 HISTORY: Follow-up [...] NEGATIVE. Report dictated by Ervin Zacarias M.D. (vice president mission integration). Asaf Brady M.D. assisted in the evaluation and interpretation of the study. I, Celine Nova MD have personally reviewed and interpreted this examination/study. > Interpreting Provider: Celine Nova MD on 03/19/2023 8:42 AM Narrative 03/19/2023 8:42 AM CDT EXAMINATIONS: 1. LEFT DIGITAL DIAGNOSTIC MAMMOGRAM AND TOMOSYNTHESIS WITH CAD AND 2. LIMITED LEFT BREAST ULTRASOUND (COMBINED REPORT) LOCATION: [facility] EXAM DATE: 03/19/2023 HISTORY: Follow-up [...] GROSS + MICRO EXAM (07/26/2000 7:28 PM INDUCTION BRAZER) Result CASE NUMBER [id number] Comment: ORDERING [...] effect, B. No evidence of malignancy sr Compensation Programs Manager [facility] Pathologist Alma Rosa Lopez M.D. Snomed. 07/28/2000 1030 <1> CPT code 57382/32171 MISCELLANEOUS SAMPLES / Unknown 07/26/2000 7:28 PM INDUCTION BRAZER 07/26/2000 7:28 PM INDUCTION BRAZER Historical Provider LAB - PATHOLOGY/C YTOLOGY ORDERABLES
--- OUTSIDE RECORDS SUMMARY | 2024-07-11 04:25 | XMS_ITS | Encounter Summary ---
Author Organization [facility] Address [address] [place] [address] Care Team Providers Care Transplant Case Manager Name Role Phone Ed Solano MD Primary Care Provider [phone] Encounter Details Date Type Department Care Team (Late Contact Info) Description 10/19/2022 WizMeta Message Enc [facility] Medical Group Multispecialty Care - [address] [place] [address] [employer]hart, [facility] Provider nurse visit Social History [...] Sex Assigned at Female 07/04/2024 9:00 AM INFORMATION SYSTEMS SECURITY ANALYST Legal Sex Female 12:28 PM INFORMATION SYSTEMS SECURITY ANALYST Gender Identity Female 07/04/2024 9:00 AM INFORMATION SYSTEMS SECURITY ANALYST Sexual Orientation Straight 07/04/2024 9: 00 AM INFORMATION SYSTEMS SECURITY ANALYST COVID-19 Exposure Response Date Recorded In the last 10 days, have yo u been in contact with someone who was confirmed or suspected to have Coronavirus/COVID-19? No / Unsure 10/16/2022 9:03 AM CDT documented as of this encounter Plan of Treatment Upcoming Encounters Date Type Department Care Team (Late Contact Info) Description 07/12/2024 2:15 PM INFORMATION SYSTEMS SECURITY ANALYST Office Visit [facility] Physical Therapy [address] [address] Ed Solano MD [address] [address] Melody Meza, PT 1 [place] [address] 08/09/2024 7:40 AM CDT Office Visit [facility] Medical Group Multispecialty Care - [place] [address] [address] [place] [address] Ed Solano MD [facility] [address] [address] documented as of this encounter Visit Diagnoses Not on filedocumented in this encounter Additional Health Concerns Assessment Noted Time PHQ-9 Depression Total Score: 0 04/15/20 21 8:39 AM INFORMATION SYSTEMS SECURITY ANALYST documented as of this encounter Care Teams Transplant Case Manager Relationship Specialty Start Date End Date Ed Solano MD [address] [place] [address] PCP - General INTERNAL MEDICINE 04/15/21 documented as of this encounter
--- OUTSIDE RECORDS SUMMARY | 2024-07-11 04:25 | XMS_ITS | Encounter Summary ---
Author Organization [facility] Address [address] [place] [address] Care Team Providers Care Rn Palliative Care Name Role Phone Ed Solano MD Primary Care Provider [phone] Encounter Details Date Type Department Care Team (Latest Contact Info) Description 09/01/2022 Togethera Message Enc [facility] Medical Group Multispecialty Care - [address] [place], [place] [address] [facility] Provider ultrasound ordered Social History Tobacco Use [...] Sex Assigned at Female 07/04/2024 9:00 AM OPTICAL MECHANIC APPRENTICE Legal Sex Female 12:28 PM OPTICAL MECHANIC APPRENTICE Gender Identity Female 07/04/2024 9:00 AM OPTICAL MECHANIC APPRENTICE Sexual Orientation Straight 07/04/2024 9: 00 AM OPTICAL MECHANIC APPRENTICE COVID-19 Exposure Response Date Recorded In the last 10 days, have yo u been in contact with someone who was confirmed or suspected to have Coronavirus/COVID-19? No / Unsure 08/31/2022 8:55 AM CDT documented as of this encounter Plan of Treatment Upcoming Encounters Date Type Department Care Team (Late st Contact Info) Description 07/12/2024 2:15 PM OPTICAL MECHANIC APPRENTICE Office Visit [facility] Physical Therapy [address] [address] Ed Solano MD [facility] [address] [address] Melody Meza, PT 1 [place] [address] 08/09/2024 7:40 AM CDT Office Visit [facility] Medical Group Multispecialty Care - [place] [address] [address] [place] [address] Ed Solano MD [address] [place] [address] documented as of this encounter Visit Diagnoses Not on filedocumented in this encounter Additional Health Concerns Assessment Noted Time PHQ-9 Depression Total Score: 0 04/15/20 21 8:39 AM OPTICAL MECHANIC APPRENTICE documented as of this encounter Care Teams Rn Palliative Care Relationship Specialty Start Date End Date Ed Solano MD [address] [place] [address] PCP - General INTERNAL MEDICINE 04/15/21 documented as of this encounter
--- OUTSIDE RECORDS SUMMARY | 2024-07-11 04:25 | XMS_ITS | Clinical Summary ---
Author Organization [facility] Address [facility] [place] [address] Care Team Providers Care Video Systems Engineer Name Role Phone Ed Solano MD Primary Care Provider [phone] Allergies Active Allergy Reactions Criticality Noted Date [...] Department Care Team Description 07/04/2024 8:40 AM ANALOG IC DESIGN ARCHITECT Office Visit [facility] Medical Group Multispecialty Care - [place] [address] [place] [address] Ed Solano MD ER F/U (Vertigo. Has has sx since ER visit//Had flu shot done at [facility]); Dizziness 07/04/2024 Travel 07/01/2024 Scan [facility] INFO SRVCS Scanned, Doc Med Group from Last 3 Months Immunizations Name Administration Dates Next Due Fluzone High Dose - >Age 65 (Prefilled Syringe) 02/13/2022,02/14/2021 Influenza (Generic) 02/06/2020,03/11/2019,2016 Influenza Adult (Generic) 02/08/2023 Influenza Peds (Generic) 01/24/2023 [facility] COVID-19 (12+) MRNA, LNP-S, PF, 100 MCG/ 0.5 ML DOSE 03/29/2021,08/13/2020,07/16/2020 [facility] COVID-19 (TITLE CURATIVE SPECIALIST CARLENE MARIANNE), MRNA, LNP-S, PF, 50 [...] Sex Assigned at Female 07/04/2024 9:00 AM ANALOG IC DESIGN ARCHITECT Legal Sex Female 12:28 PM ANALOG IC DESIGN ARCHITECT Gender Identity Female 07/04/2024 9:00 AM ANALOG IC DESIGN ARCHITECT Sexual Orientation Straight 07/04/2024 9: 00 AM ANALOG IC DESIGN ARCHITECT Last Filed Vital Signs Vital Sign Reading Time Taken Comments Blood Pressure 152/88 07/04/2024 9:01 AM ANALOG IC DESIGN ARCHITECT Pulse 56 07/04/2024 8:36 AM ANALOG IC DESIGN ARCHITECT Temperature 36.4 C (97.6 F) 07/04/2024 8:36 AM ANALOG IC DESIGN ARCHITECT Respiratory Rate 18 07/04/2024 8:36 AM ANALOG IC DESIGN ARCHITECT Oxygen Saturation 99% 07/04/2024 8:36 AM ANALOG IC DESIGN ARCHITECT Inhaled Oxygen Concentration - - Weight 76.1 kg (167 lb 12.8 oz) 07/04/2024 8:36 AM ANALOG IC DESIGN ARCHITECT Height 170.2 cm (5' 7 ) 07/04/2024 8:36 AM ANALOG IC DESIGN ARCHITECT Body Mass Index 26.28 07/04/2024 8:36 AM ANALOG IC DESIGN ARCHITECT Plan of Treatment Upcoming Encounters Date Type Department Care Team (Late st Contact Info) Description 07/12/2024 2:15 PM ANALOG IC DESIGN ARCHITECT Office Visit [facility] Physical Therapy [address] [place] [address] Ed Solano MD [address] [place] [address] Melody Meza, PT 1 [place] [address] 08/09/2024 7:40 AM CDT Office Visit [facility] Medical Group Multispecialty Care - [place] [address] [address] [place] [address] Ed Solano MD [address] [place] [address] Health Maintenance Due Date Last Done Comments [...] 01/16, 01/24/2023, Additional history exists PHQ-2 (Physician [place]) Completed 07/04/2024 Meningococcal B Vaccine Aged Out [...] BONE DENSITY/DEXA Routine 05/26/2023 12: 18 PM ANALOG IC DESIGN ARCHITECT Postmenopausal MAMMOGRAM GENERIC (SCAN ORDER) 03/19/2023 HEPATITIS C ANTIBODY Routine 04/15/2021 7:55 AM ANALOG IC DESIGN ARCHITECT Annual physical exam Encounter for medical examination to establish care General medical exam Encounter for hepatitis C screening test for low risk patient COLONOSCOPY GENERIC (SCAN ORDER) 10/06/2005 from Last 3 Months or Most Recently Relevant to Health Maintenance Results * BONE DENSITY/DEXA (05/26/2023 12:18 PM ANALOG IC DESIGN ARCHITECT) Anatomical Region Laterality Modality Bone Mammography 05/26/2023 1:45 PM ANALOG IC DESIGN ARCHITECT Impressions 05/26/2023 1:47 PM ANALOG IC DESIGN ARCHITECT =====IMPRESSION:===== The patient bone density osteopenic according to the World Health Organization (WHO) criteria 10 year fracture risk: Major osteoporotic fracture: 3.9 % Hip fracture: 0.4 % Ordered By: ED SOLANO Interpreted By: Vinayak Spear MD, 05/26/2023 1:45 PM Narrative 05/26/2023 1:47 PM ANALOG IC DESIGN ARCHITECT EXAMINATION: Bone Density Axial EXAM DATE/TIME: 05/26/2023 [...] * HEPATITIS C ANTIBODY (04/15/2021 7:55 AM ANALOG IC DESIGN ARCHITECT) HEPATITIS C AB NON-REACTI VE NON-REACT DILIP 04/15/2021 9:50 PM ANALOG IC DESIGN ARCHITECT [facility] Comment: ANTIBODIES TO HCV NOT DETECTED. DOES NOT EXCLUDE THE POSSIBILITY OF EXPOSURE TO HCV. 04/15/2021 7:55 AM ANALOG IC DESIGN ARCHITECT Ed Solano MD LABORATORY Final Result [facility] [address] [place] [address], [id number] * COLONOSCOPY GENERIC (10/06/2005) 10/06/2005 Narrative 10/06/2005 Ordered by an unspecified provider. us Documents Scanned SCANNING Final Result from Last 3 Months or Most Recently Relevant to Health Maintenance Insurance [facility] Care Teams Video Systems Engineer Relationship Specialty Start Date End Date Ed Solano MD [address] [facility] [address] [place] [address] PCP - General INTERNAL MEDICINE 04/15/21
--- OUTSIDE RECORDS SUMMARY | 2024-07-11 04:25 | XMS_ITS | Encounter Summary ---
Author Organization [facility] Address [address] [place] [address] Care Team Providers Care Wire Cutter Name Role Phone Ed Solano MD Primary Care Provider [phone] Encounter Details Date Type Department Care Team (Late Contact Info) Description 06/01/2023 [employer] Message Enc [facility] Medical Group Multispecialty Care [place] [address] [place] [address] [address] [place] [address] [facility] Provider [place] result Social History Tobacco [...] Sex Assigned at Female 07/04/2024 9:00 AM CHEF INSTRUCTOR Legal Sex Female 12:28 PM CHEF INSTRUCTOR Gender Identity Female 07/04/2024 9:00 AM CHEF INSTRUCTOR Sexual Orientation Straight 07/04/2024 9: 00 AM CHEF INSTRUCTOR documented as of this encounter Plan of Treatment Upcoming Encounters Date Type Department Care Team (Late st Contact Info) Description 07/12/2024 2:15 PM CHEF INSTRUCTOR Office Visit [facility] [address] [facility] [address] [place], [place] [phone] [place] [address] [place] [address] [address] [place] [address] Melody Meza, PT 1 [place] [address] 08/09/2024 7:40 AM CDT Office Visit [facility] Medical Group Multispecialty Care - [place] [address] [address] [place] [address] Ed Solano MD [address] [place] [address] documented as of this encounter Visit Diagnoses Not on filedocumented in this encounter Additional Health Concerns Assessment Noted Time PHQ-9 Depression Total Score: 0 04/20/20 23 9:20 AM CHEF INSTRUCTOR documented as of this encounter Care Teams Wire Cutter Relationship Specialty Start Date End Date Ed Solano MD [address] [place] [address] PCP - General INTERNAL MEDICINE 04/15/21 documented as of this encounter
[2024-07-11 04:34] LABS: Basophils Absolute Auto 0.1 K/mm3 (0.0-0.1); Basophils Percent Auto 1.3 % (0.2-1.2); Eosinophils Absolute Auto 0.1 K/mm3 (0-0.3); Eosinophils Percent Auto 1.9 % (0-4.4); Hematocrit 37.7 % (37.0-47.0); Hemoglobin 12.6 g/dL (12.0-15.0); Immature Granulocyte Absolute 0.01 K/mm3 (0.00-0.031); Immature Granulocyte Percent A 0.2 % (0-0.5); Lymphocytes Absolute Auto 3.02 K/mm3 (0.9-3.2); Lymphocytes Percent Auto 56.1 % (18.3-44.2); Mean Corpuscular HGB Conc 33.4 g/dl (32-36); Mean Corpuscular Hemoglobin 30.4 pg (26-34); Mean Corpuscular Volume 91.1 fl (80-100); Mean Platelet Volume 10.9 fl (7.4-10.4); Monocytes Absolute Auto 0.4 K/mm3 (0.1-0.6); Monocytes Percent Auto 7.2 % (2.6-8.5); Neutrophils Absolute Auto 1.8 K/mm3 (1.3-6.7); Neutrophils Percent Auto 33.3 % (45.5-73.1); Platelet Count Result 207 k/mm3 (150-375); Red Blood Count 4.14 M/mm3 (4.2-5.4); Red Cell Distribution Width 12.8 % (11.5-14.5); White Blood Count 5.4 K/mm3 (4.5-10.0)
--- NOTE | 2024-07-11 04:43 | ED.HA ---
HPI - Headache General Chief Complaint: Headache Stated Complaint: high bp Time Seen by Provider: 07/11/24 04:12 History of Present Illness HPI Narrative: 69-year-old female with a past medical history including recently diagnosed vertigo otherwise has been healthy. Patient presents to the emergency room with chief complaint of elevated blood pressure. Patient was seen by her primary care provider earlier this week and told that she had elevated blood pressure readings. She was not started any medications and sent home with a blood pressure diary to keep a log. She was taking the elevated readings today and knows that her blood pressure was in the 179-190 region and was concerned enough to come to the hospital. She was not having symptoms such as vision change, headache, nausea, vomiting, weakness, fatigue, paresthesias, chest pain, chest tightness, back pain, abdominal pain. She is otherwise asymptomatic at this time but was worried about her blood pressure. Does not take any antihypertensives. Related Data Allergies Allergy/AdvReac Type Severity Reaction Status Date / Time Penicillins Allergy Mild Unknown Verified 07/11/24 04:43 Review of Systems Review of Systems: As reviewed above in HPI [facility] Past Medical History Medical History CKD (chronic kidney disease) Graves disease GERD (gastroesophageal reflux disease) Surgical History Surgical History [place] teeth removed H/O tubal ligation History of removal of calculus of renal pelvis through percutaneous nephrostomy H/O nephrostomy Family History Family History Other Alcoholism Diabetes mellitus Heart disease Hypertension Lung cancer Social History Social History Smoking status: Never smoker Alcohol intake: never Substance use: never Do You Feel Safe in your Home?: Yes Lack of Transportation: No Lack of Food: Never True Current Housing: I Have Housing Concerned About Future Housing: No Difficulty Paying Gas/Electric Bills: No Difficulty Paying for Meds: No Currently Unemployed: No Difficulty w/ Childcare or Family Care: No Living arrangements: alone Spiritual care concerns: No Exam Narrative: GENERAL: [Well-appearing, well-nourished, and in no acute distress.] HEAD: [Normocephalic, atraumatic.] EYES: [PERRLA and EOMI.] ENT: Nares clear, no rhinorrhea or epistaxis. Mucous membranes moist. NECK: Supple. CHEST: [Clear to auscultation. No respiratory distress.] HEART: [Regular rate and rhythm]. No murmur heard. [Normal peripheral pulses.] ABDOMEN: [Soft, nondistended], [nontender], [No rigidity or guarding] EXTREMITIES: Normal range of motion. [No edema.] SKIN: Warm, dry, no rash. NEURO: [No focal deficits]. Alert and oriented [x3.] PSYCH: [Normal mood and affect.] Course Vital Signs Vital signs: Vital Signs Temperature 36.5 C 07/11/24 00:16 Pulse Rate 65 07/11/24 00:16 Respiratory Rate 16 07/11/24 00:16 Blood Pressure 190/84 H 07/11/24 00:16 Pulse Oximetry 100 07/11/24 00:16 Oxygen Delivery Room Air 07/11/24 00:16 Temperature 36.7 C 07/11/24 05:43 Pulse Rate 56 L 07/11/24 05:43 Respiratory Rate 15 07/11/24 05:43 Blood Pressure 142/91 H 07/11/24 05:43 Pulse Oximetry 100 07/11/24 05:43 Oxygen Delivery Room Air 07/11/24 00:16 MDM - Headache MDM Narrative Medical decision making narrative: 69-year-old female presenting with asymptomatic hypertension. She has elevated blood pressure reading in triage are 190/84 however when she sat down in the stretcher her blood pressure is better 146/63. Normal pulse rate, no tachycardia, fever or hypoxia. She has no symptoms at this time whatsoever. She was concerned that she was told she had high blood pressure by her doctor and is currently being worked up with a blood pressure diary but not started on any blood pressure medications. Never been on blood pressure medicines in the past. She has strong symmetric pulses, normal neurological assessment, no red flag signs of hypertension causing any end-organ damage or hypertensive emergency however will evaluate with labs, CT of the head, chest x-ray and EKG. Suspicion presently is for asymptomatic hypertension, asymptomatic hypertensive urgency, low suspicion for electrolyte problems, organ dysfunction such as kidney disease, liver elevations, troponin elevation or any EKG evidence of ischemia. No suspicion presently for intracranial pathology such as stroke or brain bleed. Patient is very anxious about her blood pressure and we discussed starting her on low-dose amlodipine until she can see her regular doctor upon completion of her workup which she was agreeable with. Workup shows no leukocytosis or anemia. Normal platelet count. Negative troponin. Unremarkable electrolytes, normal renal and hepatic function panel. Head CT without any acute findings. Chest x-ray without any pneumonia, effusions or pneumothorax. EKG shows sinus bradycardia without any evidence of ischemia. Patient was re-evaluated, stable blood pressure, unremarkable workup. Patient is presently asymptomatic. We did discuss initiation of amlodipine for blood pressure and encouraged her to follow-up with her doctor on a short-term basis to see how this is doing for her. Patient was safely discharged home at this time. Medical Records Attestation: I reviewed the patient's medical records. Lab Data Attestation: I reviewed the patient's lab results. 07/11/24 04:29 07/11/24 04:29 Labs: Lab Results 07/11/24 Range/Units 04:29 WBC 5.4 (4.5-10.0) K/mm3 RBC 4.14 L (4.2-5.4) M/mm3 Hgb 12.6 (12.0-15.0) g/dL Hct 37.7 (37.0-47.0) % MCV 91.1 (80-100) fl MCH 30.4 (26-34) pg MCHC 33.4 (32-36) g/dl RDW 12.8 (11.5-14.5) % Plt Count 207 (150-375) k/mm3 MPV 10.9 H (7.4-10.4) fl Immature Gran % (Auto) 0.2 (0-0.5) % Neut % (Auto) 33.3 L (45.5-73.1) % Lymph % (Auto) 56.1 H (18.3-44.2) % O'Brien % (Auto) 7.2 (2.6-8.5) % Eos % (Auto) 1.9 (0-4.4) % Baso % (Auto) 1.3 H (0.2-1.2) % Lymph # (Auto) 3.02 (0.9-3.2) K/mm3 O'Brien # (Auto) 0.4 (0.1-0.6) K/mm3 Eos # (Auto) 0.1 (0-0.3) K/mm3 Baso # (Auto) 0.1 (0.0-0.1) K/mm3 Abs Immat Gran (auto) 0.01 (0.00-0.031) K/mm3 Absolute Neuts (auto) 1.8 (1.3-6.7) K/mm3 Absolute Nucleated RBC 0.000 (0.0-0.012) K/mm3 Nucleated RBC % 0.0 (0.0-0.2) % Sodium 141 (137-145) mmol/L Potassium 3.9 (3.4-5.0) mmol/L Chloride 107 (98-107) mmol/L Carbon Dioxide 23 (22-30) mmol/L Anion Gap 11 (4-12) mmol/L BUN 13 (7-17) mg/dL Creatinine 0.85 (0.7-1.0) mg/dL Estim Creat Clear Calc 53 ml/min Estimated GFR > 60 (59 - ) Glucose 87 (65-110) mg/dL Calcium 9.3 (8.4-10.2) mg/dL Total Bilirubin 0.6 (0.2-1.3) mg/dL AST 26 (14-36) U/L ALT 18 (6-35) U/L Alkaline Phosphatase 88 (38-126) U/L Troponin I < 0.012 (0.000-0.034) ng/mL Total Protein 7.0 (6.3-8.2) g/dL Albumin 4.1 (3.5-5.1) g/dL Imaging Data Attestation: I personally reviewed and interpreted this imaging study as follows: My impression: Impressions Head CT 07/11/24 06:10 Impression: No significant abnormality seen. Discharge Plan Discharge Clinical Impression: Asymptomatic hypertension Patient Disposition: Home, Self-Care Condition: Stable Instructions: Antibiotic Form, Amlodipine (By mouth), Hypertension (ED) Additional Instructions: Your workup today is very reassuring, no ongoing organ damage, heart dysfunction, or any concerning findings on your imaging. We will start amlodipine which is a low-dose blood pressure medication that you can take once daily. We will send you a prescription. Encouraged to follow-up with regular doctor to discuss continuing this medication, changing to something else or other interventions. Continue logging blood pressures at home. Return with any new or worsening concerns. Patient Language: Marshallese Prescriptions: New amlodipine [Norvasc] 5 mg tablet 5 mg PO DAILY Qty: 30 0RF No Action meclizine 12.5 mg tablet 12.5 mg PO TID PRN (Reason: dizziness) Qty: 14 0RF Follow-up/Referrals: Xiomara,MD Ed [Primary Care Provider] - Time of Disposition: 06:18
[2024-07-11 04:48] LABS: Alanine Aminotransferase 18 U/L (6-35); Albumin Level 4.1 g/dL (3.5-5.1); Alkaline Phosphatase 88 U/L (38-126); Anion Gap 11 mmol/L (4-12); Aspartate Amino Transferase 26 U/L (14-36); Bilirubin,Total 0.6 mg/dL (0.2-1.3); Blood Urea Nitrogen 13 mg/dL (7-17); Calcium 9.3 mg/dL (8.4-10.2); Carbon Dioxide 23 mmol/L (22-30); Chloride 107 mmol/L (98-107); Estimated CRCL calculation 53 ml/min; Estimated Glomerular Filt Rate > 60; Glucose 87 mg/dL (65-110); Potassium 3.9 mmol/L (3.4-5.0); Sodium 141 mmol/L (137-145)
[2024-07-11 05:12] LABS: Troponin I < 0.012 ng/mL (0.000-0.034)
[2024-07-11 05:43] VITALS: BP 142/91; PULSE 56; RESP 15; TEMP 36.7; O2SAT 100
== END 2024-07-11 06:34 | disposition home or self-care (01) ==
PROVIDERS: Emergency Provider Student in an Organized Health Care Education/Training Program; PCP Internal Medicine
DX: I12.9 Hypertensive chronic kidney disease with stage 1 through stage 4 chronic kidney disease, or unspecified chronic kidney disease (principal); N18.9 Chronic kidney disease, unspecified; E05.00 Thyrotoxicosis with diffuse goiter without thyrotoxic crisis or storm; K21.9 Gastro-esophageal reflux disease without esophagitis
CPT/HCPCS: 36415; 70450; 71045; 80053; 84484; 85025; 93005; 99284